=== PATIENT | female | born 1970 | race Caucasian/White ===

== ENCOUNTER 2017-01-28 12:18 | Emergency (ER) | payer OTHER ==
--- NOTE | 2017-01-28 12:55 | UC ---
UC General HPI - HPI Summary HPI Summary: three days of sore thraot, stared with headache and body aches, no energy - History of Current Complaint Stated Complaint: FEVER,SORE THROAT Time Seen by Provider: 01/28/17 12:46 Hx Obtained From: Patient Onset/Duration: Sudden Onset, Lasting Days Timing: Constant Onset Severity: Moderate Current Severity: Moderate Associated Signs & Symptoms: Positive: Fever, Headache - Allergy/Home Medications Allergies/Adverse Reactions: Allergies Allergy/AdvReac Type Severity Reaction Status Date / Time Codeine Allergy Unknown Verified 01/28/17 13:06 Reaction Details Meperidine [From Demerol HCl] Allergy Unknown Verified 01/28/17 13:06 Reaction Details Morphine Allergy Unknown Verified 01/28/17 13:06 Reaction Details PMH/Surg Hx/FS Hx/Imm Hx Previously Healthy: Yes - Surgical History Surgical History: Yes Surgery Procedure, Year, and Place: D&c, gallbladder , nose surgery d/t fx. - Family History Known Family History: Negative: Cardiac Disease, Hypertension - Social History Alcohol Use: None Substance Use Type: None Smoking Status (MU): Heavy Every Day Tobacco Smoker Type: Cigarettes Amount Used/How Often: 1 pack per day Length of Time of Smoking/Using Tobacco: 25 yrs Have You Smoked in the Last Year: Yes Household Exposure Type: Cigarettes Review of Systems Constitutional: Fever, Fatigue Skin: Negative Eyes: Negative ENT: Sore Throat Respiratory: Negative Cardiovascular: Negative Gastrointestinal: Negative Genitourinary: Negative Motor: Negative Neurovascular: Negative Musculoskeletal: Myalgia Neurological: Headache Psychological: Negative All Other Systems Reviewed And Are Negative: Yes Physical Exam Triage Information Reviewed: Yes Appearance: Well-Nourished, Ill-Appearing, Pain Distress Vital Signs Reviewed: Yes Eye Exam: Normal Eyes: Positive: Conjunctiva Clear ENT: Positive: Pharyngeal erythema, Nasal congestion, TMs normal, Muffled/ hoarse voice Dental Exam: Normal Neck exam: Normal Neck: Positive: Supple, Nontender, No Lymphadenopathy Respiratory Exam: Normal Respiratory: Positive: Chest non-tender, No respiratory distress, No accessory muscle use, Wheezing, Inspiration Cardiovascular Exam: Normal Cardiovascular: Positive: RRR, No Murmur, Pulses Normal Abdominal Exam: Normal Abdomen Description: Positive: Nontender, No Organomegaly, Soft Bowel Sounds: Positive: Present Musculoskeletal Exam: Normal Musculoskeletal: Positive: Strength Intact, ROM Intact, No Edema Neurological Exam: Normal Neurological: Positive: Alert, Muscle Tone Normal Psychological Exam: Normal Skin Exam: Normal Course/Dx - Course Course Of Treatment: hx obtained, exam performed, rapid flu obtained and was positive, educated on symptom managment - Differential Dx - Multi-Symptom Provider Diagnoses: influenza A Discharge - Discharge Plan Condition: Stable Disposition: HOME Patient Education Materials: Influenza (ED) Additional Instructions: Increase your fluid intake and get plenty of rest. increase your fluid intake and follow up as needed.
[2017-01-28 13:06] VITALS: BP 110/62
== END 2017-01-28 13:35 | disposition home or self-care (01) ==
LOC: UCCORT 12:18
DX: J10.1 Influenza due to other identified influenza virus with other respiratory manifestations (principal); Z90.49 Acquired absence of other specified parts of digestive tract; Z88.5 Allergy status to narcotic agent; F17.210 Nicotine dependence, cigarettes, uncomplicated
CPT/HCPCS: 87502; 99211; G0463

== ENCOUNTER 2017-12-09 09:25 | Emergency (ER) | payer OTHER ==
[2017-12-09 11:31] VITALS: BP 113/59
--- NOTE | 2017-12-09 12:13 | UC ---
Throat Pain/Nasal Ralph HPI - HPI Summary HPI Summary: Pt presents with c/o Of 1. " I think I have a sinus infection". 2.c/o of left medial upper back pain with left arm weakness. Denies MEEIR or unilateral weakness. Denies injury or trauma. - History of Current Complaint Chief Complaint: UCRespiratory Stated Complaint: MEIER Time Seen by Provider: 12/09/17 11:47 Hx Obtained From: Patient Hx Last Menstrual Period: 12/05/17 ?: No Onset/Duration: Gradual Onset, Still Present Severity: Moderate Associated Signs & Symptoms: Positive: Sinus Discomfort - Allergies/Home Medications Allergies/Adverse Reactions: Allergies Allergy/AdvReac Type Severity Reaction Status Date / Time Codeine Allergy Unknown Verified 12/09/17 11:23 Reaction Details Meperidine [From Demerol HCl] Allergy Unknown Verified 12/09/17 11:23 Reaction Details Morphine Allergy Unknown Verified 12/09/17 11:23 Reaction Details Home Medications: Home Medications Ibuprofen [Ibuprofen 200 MG] 800 mg PO ONCE PRN 12/09/17 [History Confirmed 11/14] PMH/Surg Hx/FS Hx/Imm Hx Previously Healthy: No - pt states she is "very sick all the time" Recently diagnosed with Lupus. Psychological History: Anxiety - Surgical History Surgical History: Yes Surgery Procedure, Year, and Place: D&c, gallbladder , nose surgery d/t fx. - Family History Known Family History: Negative: Cardiac Disease, Hypertension - Social History Occupation: Unemployed Lives: With Family Alcohol Use: None Substance Use Type: None Smoking Status (MU): Heavy Every Day Tobacco Smoker Type: Cigarettes Amount Used/How Often: 1 1/2 pack per day Length of Time of Smoking/Using Tobacco: 25 yrs Have You Smoked in the Last Year: Yes Household Exposure Type: Cigarettes Review of Systems Constitutional: Fatigue Skin: Negative Eyes: Negative ENT: Sinus Congestion, Sinus Pain/Tenderness Respiratory: Negative Cardiovascular: Negative Gastrointestinal: Negative Genitourinary: Negative Motor: Decreased ROM - left arm/shoulder Neurovascular: Negative Musculoskeletal: Decreased ROM - left shoulder, Myalgia - left medial upper back Neurological: Weakness - left shoulder Psychological: Anxious Is Patient Immunocompromised?: No All Other Systems Reviewed And Are Negative: Yes Physical Exam Triage Information Reviewed: Yes Appearance: Ill-Appearing, Other: - anxious, tearful, states she was addicted to opioids at one time, Vital Signs: Initial Vital Signs Temp 99.8 F 12/09/17 11:24 Pulse 83 12/09/17 11:24 Resp 20 12/09/17 11:24 BP 113/59 12/09/17 11:24 Pulse Ox 99 12/09/17 11:24 Vital Signs Reviewed: Yes Eye Exam: Normal ENT Exam: Normal Neck exam: Normal Neck: Positive: Other: - no unilateral drooping or weakness in face Respiratory Exam: Normal Cardiovascular Exam: Normal Musculoskeletal: Positive: Strength Limited @ - right hand director vaccine > than left,, ROM Limited @ - left shoulder, Other: - trigger point tenderness left medial mid upper back. Neurological Exam: Normal Neurological: Positive: Alert Psychological Exam: Other Psychological: Positive: Other: - anxious Skin Exam: Normal Throat Pain/Nasal Course/Dx - Differential Dx/Diagnosis Differential Diagnosis/HQI/PQRI: Sinusitis, Other Provider Diagnoses: sinusitis. myalgia, trigger point tenderness Discharge - Discharge Plan Condition: Stable Disposition: HOME Prescriptions: Cyclobenzaprine TAB* [Flexeril 10 MG TAB*] 10 mg PO Q8H PRN #30 tab PRN Reason: Pain Ketorolac TAB * [Toradol TAB *] 10 mg PO Q6H PRN #15 tab PRN Reason: Pain predniSONE TAB* [Deltasone TAB*] 20 mg PO DAILY #4 tab Patient Education Materials: Sinusitis (ED), Trigger Point Pain (ED), General Headache (ED) Referrals: [facility] [Outside] Jason Sesay MD [Medical Doctor] - If Needed No Primary Care Phys,NOPCP [Primary Care Provider] - Additional Instructions: Please follow up with your PCP or return to clinic as needed. Also, please follow up with Dr. Sesay as scheduled or earlier if needed and take your medications as prescribed LUZ MARIA.
== END 2017-12-09 12:26 | disposition home or self-care (01) ==
LOC: UCCORT 09:25
DX: J32.9 Chronic sinusitis, unspecified (principal); M79.1 Myalgia; F41.9 Anxiety disorder, unspecified; M32.9 Systemic lupus erythematosus, unspecified; F17.210 Nicotine dependence, cigarettes, uncomplicated; Z88.5 Allergy status to narcotic agent
CPT/HCPCS: 99212; G0463

== ENCOUNTER 2018-05-16 16:52 | Emergency (ER) | payer OTHER ==
[2018-05-16 17:30] VITALS: BP 112/69
--- NOTE | 2018-05-16 18:03 | UC ---
Throat Pain/Nasal Ralph HPI - HPI Summary HPI Summary: 47 yo female with fever and sore throat x days she lives in chronic pain neck pain x yrs MRI about 6 mos ago -multiple herniated discs low back pain x yrs DDD abd pain x >[address] 6 mos ago- negative about 4 mos ago dxed with LUPUS recently started plaquinal - History of Current Complaint Chief Complaint: UCGeneralIllness Stated Complaint: FEVER,EAR PAIN, RESPIRATORY Time Seen by Provider: 05/16/18 17:28 Hx Obtained From: Patient Hx Last Menstrual Period: 12/05/17 Onset/Duration: Gradual Onset, Lasting Days Severity: Moderate Pain Intensity: 6 Pain Scale Used: 0-10 Numeric Cough: None Associated Signs & Symptoms: Positive: Fever - Allergies/Home Medications Allergies/Adverse Reactions: Allergies Allergy/AdvReac Type Severity Reaction Status Date / Time codeine Allergy Unknown Verified 05/16/18 17:35 Reaction Details meperidine [From Demerol] Allergy Unknown Verified 05/16/18 17:35 Reaction Details morphine Allergy Unknown Verified 05/16/18 17:35 Reaction Details Home Medications: Home Medications Hydroxychloroquine TAB* [Plaquenil TAB*] 200 mg PO DAILY 05/16/18 [History Confirmed 05/16/18] PMH/Surg Hx/FS Hx/Imm Hx - Surgical History Surgical History: Yes Surgery Procedure, Year, and Place: D&c, gallbladder , nose surgery d/t fx. - Family History Known Family History: Positive: Other - LUPUS 3 relatives Negative: Cardiac Disease, Hypertension - Social History Alcohol Use: None Substance Use Type: None Smoking Status (MU): Heavy Every Day Tobacco Smoker Type: Cigarettes Amount Used/How Often: 1 1/2 pack per day Length of Time of Smoking/Using Tobacco: 25 yrs Have You Smoked in the Last Year: Yes Household Exposure Type: Cigarettes Review of Systems Constitutional: Fever, Chills Skin: Negative Eyes: Negative ENT: Sore Throat Respiratory: Negative Cardiovascular: Negative Gastrointestinal: Abdominal Pain - chronic Genitourinary: Negative Motor: Negative Neurovascular: Negative Musculoskeletal: Myalgia Neurological: Negative Psychological: Negative All Other Systems Reviewed And Are Negative: Yes Physical Exam Triage Information Reviewed: Yes Appearance: Well-Appearing, No Pain Distress, Well-Nourished Vital Signs: Initial Vital Signs Temp 100.4 F 05/16/18 17:24 Pulse 97 05/16/18 17:24 Resp 16 05/16/18 17:24 BP 112/69 05/16/18 17:24 Pulse Ox 99 05/16/18 17:24 Vital Signs Reviewed: Yes Eyes: Positive: Conjunctiva Clear ENT: Positive: Pharyngeal erythema. Negative: Trismus, Muffled voice, Hoarse voice Neck: Positive: Enlarged Nodes @ - ant cervicacl Respiratory: Positive: Lungs clear, Normal breath sounds, No respiratory distress, No accessory muscle use Cardiovascular: Positive: RRR, No Murmur Abdomen Description: Negative: Nontender - diffuse mild tenderness, Distended, Guarding Bowel Sounds: Positive: Present Musculoskeletal: Positive: ROM Intact, No Edema Neurological: Positive: Alert Psychological Exam: Normal Skin Exam: Normal Diagnostics - Laboratory Diagnostic Studies Completed/Ordered: strep (-) Throat Pain/Nasal Course/Dx - Differential Dx/Diagnosis Provider Diagnoses: acute pharyngitis. chronic neck/back and abdominal pain Discharge - Sign-Out/Discharge Documenting (check all that apply): Discharge/Admit/Transfer - Discharge Plan Condition: Stable Disposition: HOME Prescriptions: Amoxicillin PO (*) [Amoxicillin 875 MG (*)] 875 mg PO BID #20 tab Patient Education Materials: Pharyngitis (ED) Referrals: JOSE Chavez [Primary Care Provider] - 2 Days - Billing Disposition and Condition Condition: STABLE Disposition: Home
== END 2018-05-16 18:17 | disposition home or self-care (01) ==
LOC: UCCORT 16:52
DX: Z88.5 Allergy status to narcotic agent (principal); J02.9 Acute pharyngitis, unspecified; G89.29 Other chronic pain; M54.2 Cervicalgia; M54.9 Dorsalgia, unspecified; R10.9 Unspecified abdominal pain
CPT/HCPCS: 81003; 84702; 87651; 99212; G0463

== ENCOUNTER 2018-12-08 09:02 | Emergency (ER) | payer OTHER ==
[2018-12-08] MEDS ORDERED: Acetaminophen TAB* 325 MG PO ONE (10:18)
[2018-12-08 10:22] VITALS: BP 119/41
--- NOTE | 2018-12-08 11:36 | ED ---
Back Pain - HPI Summary HPI Summary: 48 yr old female with the complaint of left flank pain. Onset of pain 3 days ago. She has had chills, Nausea, vomiting. She had other people in the family with NVD. She has had increased frequency of urination, but also hesitancy of urination. She denies dizziness. No cough, chest pain or sob. She denies falls or injuries. - History of Current Complaint Chief Complaint: UCBackPain Stated Complaint: LOWER BACK PAIN Time Seen by Provider: 12/08/18 10:20 Hx Last Menstrual Period: 3 weeks Pain Intensity: 7 - Allergies/Home Medications Allergies/Adverse Reactions: Allergies Allergy/AdvReac Type Severity Reaction Status Date / Time codeine Allergy Unknown Verified 12/08/18 10:11 Reaction Details meperidine [From Demerol] Allergy Unknown Verified 12/08/18 10:11 Reaction Details morphine Allergy Unknown Verified 12/08/18 10:11 Reaction Details PMH/Surg Hx/FS Hx/Imm Hx Cardiovascular History: Reports: Hx Hypertension - after menigitis age 33 yrs - Surgical History Surgery Procedure, Year, and Place: D&c, gallbladder , nose surgery d/t fx. Infectious Disease History: No Infectious Disease History: Denies: Traveled Outside the [place] in Last 30 Days - Family History Known Family History: Positive: Other - LUPUS 3 relatives Negative: Cardiac Disease, Hypertension - Social History Alcohol Use: Occasionally Substance Use Type: Reports: None Smoking Status (MU): Heavy Every Day Tobacco Smoker Type: Cigarettes Amount Used/How Often: 1 1/2 pack per day Length of Time of Smoking/Using Tobacco: 25 yrs Have You Smoked in the Last Year: Yes Review of Systems Constitutional: Negative Positive: frequency, other - hesitancy All Other Systems Reviewed And Are Negative: Yes Physical Exam Triage Information Reviewed: Yes Vital Signs On Initial Exam: Initial Vitals Temp Pulse Resp BP Pulse Ox 99.8 F 75 28 119/41 100 12/08/18 10:13 12/08/18 10:13 12/08/18 10:13 12/08/18 10:13 12/08/18 10:13 Vital Signs Reviewed: Yes Appearance: Positive: Well-Appearing, No Pain Distress Skin: Positive: Warm, Skin Color Reflects Adequate Perfusion Head/Face: Positive: Normal Head/Face Inspection Eyes: Positive: EOMI ENT: Positive: Pharynx normal, TMs normal Neck: Positive: Nontender Respiratory/Lung Sounds: Positive: Clear to Auscultation, Breath Sounds Present Cardiovascular: Positive: RRR. Negative: Murmur Abdomen Description: Positive: CVA Tenderness (R), CVA Tenderness (L) Musculoskeletal: Positive: Strength/ROM Intact Neurological: Positive: Sensory/Motor Intact, Alert, Oriented to Person Place, Time, CN Intact II-III Psychiatric: Positive: Normal - Colwell Coma Scale Best Eye Response: 4 - Spontaneous Best Motor Response: 6 - Obeys Commands Best Verbal Response: 5 - Oriented Coma Scale Total: 15 Diagnostics - Vital Signs Vital Signs Temp Pulse Resp BP Pulse Ox 12/08/18 10:13 99.8 F 75 28 119/41 100 - Laboratory Lab Results: Lab Results 12/08/18 12/08/18 Range/Units 10:26 10:28 POC Urine Color Yellow POC Urine Clarity Clear POC Urine pH 5.5 (5-9) POC Ur Specif [place] >= 1.030 (1.010-1.030) POC Urine Protein 1+ A (Negative) POC Ur Glucose (UA) Negative (Negative) POC Urine Ketones Trace A (Negative) POC Urine Blood 1+ A (Negative) POC Urine Nitrite Negative (Negative) POC Urine Bilirubin 1+ A (Negative) POC Urine Urobilinogen 0.2 (Negative) POC U Leukocyte Esteras Negative (Negative) POC Ur Test Negative (Negative) Lab Statement: Any lab studies that have been ordered have been reviewed, and results considered in the medical decision making process. Back Pain Course/Dx - Course Course Of Treatment: 48 yr old with back pain. CT neg for acute findings or renal stones. She has been advised to go to the ER for lab eval and further work up. She will go to the ER from here. - Diagnoses Provider Diagnoses: Back pain Discharge - Sign-Out/Discharge Documenting (check all that apply): Patient Departure All imaging exams completed and their final reports reviewed: Yes - Discharge Plan Condition: Good Disposition: HOME Patient Education Materials: Back Pain (ED) Referrals: Baljit Kumar MD [Primary Care Provider] - 2 Days - Billing Disposition and Condition Condition: GOOD Disposition: Home
== END 2018-12-08 11:48 | disposition home health service (06) ==
LOC: UCCORT 09:02
DX: M54.9 Dorsalgia, unspecified (principal); Z88.5 Allergy status to narcotic agent; I10 Essential (primary) hypertension; F17.210 Nicotine dependence, cigarettes, uncomplicated
CPT/HCPCS: 74176; 81003; 84702; 99212; A9270-GY; G0463

== ENCOUNTER 2019-01-22 16:18 | Emergency (ER) | payer OTHER ==
[2019-01-22 17:11] VITALS: BP 116/62
--- NOTE | 2019-01-22 17:26 | UC ---
Upper Extremity HPI - HPI Summary HPI Summary: Pt's pet 200lb Neo Oliveira yanked on patient's arm about 5 times while she was holding his collar. Happened 5 days ago and still has right shoulder pain. - History of Current Complaint Chief Complaint: UCUpperExtremity Stated Complaint: RT SHOULDER COMPLAINT Time Seen by Provider: 01/22/19 17:14 Hx Obtained From: Patient Hx Last Menstrual Period: 01/20/19 ?: No Onset/Duration: Sudden Onset, Worse Since - Worse since it happened 5 days ago. , Other Severity Initially: Moderate Severity Currently: Moderate Pain Intensity: 6 Character: Sharp, Aching, Throbbing Aggravating Factor(s): Movement, Lifting, Abduction Alleviating Factor(s): Nothing, Other: - Pain better when not moving. Associated Signs And Symptoms: Positive: Numbness/Tingling - Pt states because she has neck and shoulder problems as well as fibrmyalgia, she has constant numbness and tingling to right arm normally, not worse since the injury. - Risk Factors Non-Orthopedic Risk Factor: Negative DVT Risk Factors: Negative Septic Arthritis Risk Factor: Negative - Allergies/Home Medications Allergies/Adverse Reactions: Allergies Allergy/AdvReac Type Severity Reaction Status Date / Time codeine Allergy Severe Swelling Verified 01/22/19 17:06 Of Face,Lips,& Throat meperidine [From Demerol] Allergy Unknown Verified 01/22/19 17:06 Reaction Details morphine Allergy Unknown Verified 01/22/19 17:06 Reaction Details Home Medications: Home Medications NK [No Home Medications Reported] 01/22/19 [History Confirmed 01/22/19] PMH/Surg Hx/FS Hx/Imm Hx Previously Healthy: No - History of fibromyalgia, always has numbness and tingling to right arm. Other Neurological History: Fibromyalgia with chronic numbness and tingling to right arm. - Surgical History Surgical History: Yes Surgery Procedure, Year, and Place: D&c, gallbladder , nose surgery d/t fx. - Family History Known Family History: Positive: Other - LUPUS 3 relatives Negative: Cardiac Disease, Hypertension - Social History Lives: With Family Alcohol Use: Occasionally Substance Use Type: None Smoking Status (MU): Heavy Every Day Tobacco Smoker Type: Cigarettes Amount Used/How Often: 1 1/2 pack per day Length of Time of Smoking/Using Tobacco: 25 yrs Have You Smoked in the Last Year: Yes Household Exposure Type: Cigarettes Review of Systems All Other Systems Reviewed And Are Negative: Yes Skin: Negative: Rash, Bruising Respiratory: Negative: Shortness Of Breath Cardiovascular: Negative: Palpitations, Chest Pain Motor: Positive: Decreased ROM Neurovascular: Positive: Decreased Sensation - Pt always has nymbness and tingling to right arm Musculoskeletal: Positive: Decreased ROM Neurological: Positive: Paresthesia, Numbness - Chronic due to fibromyalgia Is Patient Immunocompromised?: No Physical Exam Triage Information Reviewed: Yes Appearance: Well-Appearing, No Pain Distress, Well-Nourished Vital Signs: Initial Vital Signs Temp 99 F 01/22/19 17:06 Pulse 80 01/22/19 17:06 Resp 14 01/22/19 17:06 BP 116/62 01/22/19 17:06 Pulse Ox 99 01/22/19 17:06 Vital Signs Reviewed: Yes Neck exam: Normal Neck: Positive: Supple Respiratory Exam: Normal Cardiovascular Exam: Normal Musculoskeletal: Positive: Strength Intact - No erythema, deformity, bruising or swelling present, ROM Limited @ - Able to abduct right arm to approx 90 degrees then has pain., Other: - Pain on palpation right anterior shoulder. Neurological: Positive: Alert, Muscle Tone Normal, Other: - Decreased sensation right arm (chronic for pt) Psychological Exam: Normal Skin Exam: Normal Upper Extremity Course/Dx - Course Course Of Treatment: Patient has been fairly comfortable here. She refuses any pain medication. X-ray of the right shoulder was negative. She was given an arm sling for comfort. She is follow-up with the orthopedist in 3 or 4 days if no improvement. She is to avoid movements that cause pain. She may take whatever pain medication she has at home. She may also apply heat to the sore area. - Differential Dx/Diagnosis Differential Diagnosis/HQI/PQRI: Strain Provider Diagnosis: Right shoulder strain Discharge - Sign-Out/Discharge Documenting (check all that apply): Patient Departure All imaging exams completed and their final reports reviewed: No - Discharge Plan Condition: Fair Disposition: HOME Patient Education Materials: Muscle Strain (DC) Referrals: Baljit Kumar MD [Primary Care Provider] - Additional Instructions: Apply heat to the sore area. Take your normla medication for pain. Definite follow up with orthopedist if continued pain. Avoid movements that cause pain. - Billing Disposition and Condition Condition: FAIR Disposition: Home - Attestation Statements Provider Attestation: I was available for consult. This patient was seen by the [facility]. The patient was not presented to, seen by, or examined by me. -Kane
--- NOTE | 2019-01-23 07:16 | UC ---
- Progress Note Progress Note: xray report right shoulder : FINDINGS: The bones are in normal alignment. No fracture is seen. Joint spaces appear maintained. IMPRESSION: NO EVIDENCE OF FRACTURE. Course/Dx - Diagnoses Provider Diagnoses: Right shoulder strain Discharge - Sign-Out/Discharge Documenting (check all that apply): Patient Departure All imaging exams completed and their final reports reviewed: Yes - Discharge Plan Condition: Fair Disposition: HOME Patient Education Materials: Muscle Strain (DC) Referrals: Baljit Kumar MD [Primary Care Provider] - Additional Instructions: Apply heat to the sore area. Take your normla medication for pain. Definite follow up with orthopedist if continued pain. Avoid movements that cause pain. - Billing Disposition and Condition Condition: FAIR Disposition: Home
== END 2019-01-22 18:43 | disposition home or self-care (01) ==
LOC: UCCORT 16:18
DX: S46.911A Strain of unspecified muscle, fascia and tendon at shoulder and upper arm level, right arm, initial encounter (principal); M79.7 Fibromyalgia; Z88.5 Allergy status to narcotic agent; X50.0XXA Overexertion from strenuous movement or load, initial encounter; Y93.89 Activity, other specified; Y92.9 Unspecified place or not applicable
CPT/HCPCS: 99212; G0463

== ENCOUNTER 2019-03-04 11:27 | Emergency (ER) | payer OTHER ==
--- OUTSIDE RECORDS SUMMARY | 2019-03-04 13:17 | XMS REPORT | Continuity of Care Document ---
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 Monique Chapman MD Primary Care Physician Unavailable Payers Date Identification Numbers Payment Provider Subscriber Effective: 2019 Policy Number: [id number] Medicaid [place] Self PayID: [id number] [address] [place] [id number] Advance Directives Description No Information Available Problems Date Description Provider Status Onset: 01/07/2015 Gastroesophageal reflux disease Sissy Mercado RPAC Active Onset: 01/07/2015 Gastroesophageal reflux disease Sissy Mercado RPAC Active Onset: 01/07/2015 Kidney stone Sissy Mercado RPAC Active Onset: 01/07/2015 Deviated nasal septum Sissy Mercado RPAC Active Onset: 01/07/2015 Cigarette smoker Sissy Mercado RPAC Active Onset: 08/04/2013 Multiple joint pain Linda Geiger MD Active Onset: 06/30/2017 Open wound of forearm Trupti Abbott PA Active Onset: 06/30/2017 Skin sensation disturbance Trupti Abbott PA Active Family History Date Family Member(s) Observation Comments General Non Contributory Social History Type Date Description Comments Sex Unknown Marital Status Lives With Boyfriend Home Environment Lives With boyfriend Occupation Disabled Work Status Disabled Hand Dominance Right-handed Tobacco Use Start: Unknown currently smokes 1/2 Pack Daily Smoking Status Reviewed: 03/08/19 currently smokes 1/2 Pack Daily Smokeless Tobacco Never Used Smokeless Tobacco ETOH Use Rarely consumes alcohol Tobacco Use Start: Unknown Heavy tobacco smoker (more than 10 cigarettes/day) Recreational Drug Use Denies Drug Use Allergies, Adverse Reactions, Alerts Date Description Reaction Status Severity Comments 01/31/2013 Levaquin Active 10/31/2012 Morphine Active 10/15/2014 Meperidine Active 10/31/2012 Demerol Active 10/31/2012 Codeine Active Medications Medication Date Status Form Strength Qnty SIG Indications Ordering Provider Ibuprofen 02/01/20 Active Tablets 800mg 15tab one Palacio, 19 s tablet by alla Da Silva MD every 8 hours as needed pain Flonase 12/13/19 Active Suspension 50mcg/Act 16uni one spray Fely, 14 ts each nare Linda daily , Cyclobenzaprine 10/16/20 Active Tablets 10mg 90tab 1 by AMOR Geiger 13 s mouth Lindaricardo estrella MD times a day as needed Depo-Provera 04/04/20 Hx Suspension 150mg/ml 1ml administe N92.1 Joseph, 18 - r 1 JOLIE Ruggiero 02/01/20 millilite 19 rs intramusc ularly every 12 weeks for control Bentyl 05/18/20 Hx Capsules 10mg 90cap cap by Guilherme 17 - s alla Villegas MD 03/28/20 three 18 times a day as needed for crampy abd pain Amoxicillin 05/16/20 Hx Capsules 500mg 30cap on by 461.8 Tru, 15 - s mouth Jenniferl 05/28/20 three eigh, 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 *in place of augmentin * Amoxicillin/Clav 05/12/20 Hx Tablets 500-125mg 20tab one by 461.8 kumar Ottanate 15 - s mouth Jenniferl Potassium 05/16/20 twice a eigh, 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 15 day x 10 days Amoxicillin/Clav 02/11/20 Hx Tablets 875-125mg 14tab 1 by david Geiger 15 - s mouth Linda Potassium 05/12/20 twice a , 15 day Mucinex 02/05/20 Hx Tablets ER 600mg 60tab 1 tab by Fely, 15 - 12HR s mouth Linda 05/12/20 twice a , 15 day Doxycycline 02/05/20 Hx Capsules 100mg 20cap 1 tab by Fely Monohydrate 15 - s mouth Linda 05/12/20 twice a , 15 day Sucralfate 01/07/20 Hx Suspension 1GM/10ML 420un 2 Love, 15 - its teaspoons Maria Elena Unknown poaubrey MD and swallow, qid Omeprazole 01/07/[address] 20mg 90tab 1 by Sally 15 - s mouth Maria Elena 03/28/20 every day , 18 Fluticasone Hx Suspension 50mcg/Act Unknown Propionate 03/28/20 18 Gabapentin Hx Capsules 400mg Unknown 03/28/20 18 Hydrocodone-Acet Hx Tablets 7.5-325mg Unknown aminophen 03/28/20 18 Immunizations CPT Code Status Date Vaccine Lot # [id number] Given 10/09/2012 flu vaccination Vital Signs Date Vital Result Comment 02/05/2019 9:23am BP Systolic 110 mmHg BP Diastolic 76 mmHg Body Temperature 98.3 F Heart Rate 80 /min Height 60 inches 5'0" Weight 131.00 lb BMI (Body Mass Index) 25.6 kg/m2 BSA (Body Surface Area) 1.56 m2 [place] body weight in kilograms 45 kg O2 % BldC Oximetry 96 % room air Left ear audiology results 6 01/31/2019 8:55am BP Systolic 110 mmHg BP Diastolic 76 mmHg Body Temperature 97.8 F Heart Rate 76 /min Height 62 inches 5'2" Weight 134.00 lb BMI (Body Mass Index) 24.5 kg/m2 BSA (Body Surface Area) 1.61 m2 [place] body weight in kilograms 50 kg O2 % BldC Oximetry 99 % Pain Level 7 04/04/2018 11:14am BP Systolic 126 mmHg BP Diastolic 80 mmHg Height 61.5 inches 5'1.50" [place] body weight in kilograms 49 kg 03/28/2018 2:10pm BP Systolic 108 mmHg BP Diastolic 61 mmHg Height 61.5 inches 5'1.50" Weight 134.00 lb BMI (Body Mass Index) 24.9 kg/m2 BSA (Body Surface Area) 1.60 m2 [place] body weight in kilograms 49 kg 06/30/2017 11:10am BP Systolic Sitting Left Arm 102 mmHg BP Diastolic Sitting Left Arm 60 mmHg Height 61.5 inches 5'1.50" Weight 129.00 lb BMI (Body Mass Index) 24.0 kg/m2 BSA (Body Surface Area) 1.58 m2 [place] body weight in kilograms 49 kg 05/18/2017 2:01pm BP Systolic Sitting Left Arm 120 mmHg BP Diastolic Sitting Left Arm 84 mmHg Heart Rate 80 /min Respiratory Rate 16 /min Height 60 inches 5'0" Weight 132.00 lb BMI (Body Mass Index) 25.8 kg/m2 BSA (Body Surface Area) 1.56 m2 [place] body weight in kilograms 45 kg 07/01/2015 11:25am BP Systolic 100 mmHg BP Diastolic 64 mmHg Height 60 inches 5'0" Weight 138.00 lb BMI (Body Mass Index) 26.9 kg/m2 BSA (Body Surface Area) 1.59 m2 Last Menstrual Period [id number] 05/12/2015 11:18am BP Systolic Sitting Left Arm 118 mmHg BP Diastolic Sitting Left Arm 72 mmHg Body Temperature 99.6 F Height 60 inches 5'0" Weight 140.00 lb BMI (Body Mass Index) 27.3 kg/m2 BSA (Body Surface Area) 1.60 m2 Last Menstrual Period [id number] 02/04/2015 11:23am BP Systolic 122 mmHg BP Diastolic 86 mmHg Body Temperature 100.1 F Height 60 inches 5'0" Weight 139.00 lb 01/07/2015 11:12am BP Systolic 120 mmHg BP Diastolic 90 mmHg Body Temperature 99.3 F Heart Rate 80 /min Height 60 inches 5'0" Weight 138.00 lb 09/19/2014 1:34pm BP Systolic 118 mmHg BP Diastolic 64 mmHg Height 60 inches 5'0" Weight 136.00 lb 06/05/2014 4:35pm BP Systolic 106 mmHg BP Diastolic 74 mmHg Height 60 inches 5'0" Weight 136.00 lb 12/13/2013 11:25am BP Systolic 100 mmHg BP Diastolic 62 mmHg Body Temperature 100.0 F Heart Rate 80 /min Height 60 inches 5'0" Weight 137.00 lb 10/16/2013 10:42am BP Systolic 108 mmHg BP Diastolic 74 mmHg Body Temperature 99.2 F Heart Rate 72 /min Respiratory Rate 18 /min Height 60 inches 5'0" Weight 134.00 lb 08/02/2013 8:04pm BP Systolic 110 mmHg BP Diastolic 74 mmHg Height 60 inches 5'0" Weight 134.00 lb 03/06/2013 10:44am BP Systolic 102 mmHg BP Diastolic 68 mmHg Height 60 inches 5'0" Weight 132.00 lb 01/30/2013 10:34am BP Systolic 138 mmHg BP Diastolic 78 mmHg Body Temperature 99.4 F Height 60 inches 5'0" Weight 136.00 lb Results Test Date Facility Test Result H/L Range Note Laboratory test 03/28/2018 [facility] Thyroid Stim <pending> finding [address] [place] [address] [phone] LDH <pending> FSH <pending> Laboratory test 03/28/2018 [facility] Hepatitis B <pending> finding [address] [place] [place] [address] [phone] Hepatitis C Antibody <pending> Treponema Antibody [place] <pending> Urine Culture 03/28/2018 [facility] Urine Culture NO GROWTH: 1, [address] FINAL <[place] [address] NOTE> [phone] CBS 03/28/2018 [facility] White Blood 7.7 K/uL N 3.1-10 W/Automated [address] Count .7 [place] [address] [phone] Red Blood Count 4.39 M/uL N 3.90-5.40 Hemoglobin 14.8 gm/dL N 11.6-15.8 Hematocrit 43.0 % N 36.0-46.1 Mean Cell Volume 97.9 fl N 80.9-99.0 Mean Corpuscular HGB 33.7 pg High 25.9-32.7 Mean Corpuscular HGB Conc 34.4 g/dL High 30.8-34.3 Platelet Count 255 K/uL N 155-360 Red Cell Distri Width SD 48.7 fl High 3-47 Red Cell Distri Width %CV 13.9 % N 11.7-14.4 Mean Platelet Volume 11.3 fL N 8.9-12.4 Neut% 70.7 % N 40.4-72.8 Lymph % 23.1 % N 20.0-42.0 [place] % 4.9 % N 4.3-13.2 Eo% 1.0 % N 0.0-6.6 Bas% 0.3 % N 0.0-1.1 Neut# 5.43 K/uL N 1.8-7.0 Lymph # 1.78 K/uL N 1.0-4.0 [place] # 0.38 K/uL N 0.3-0.9 Eos # 0.08 K/uL N 0.0-0.5 Baso # 0.02 K/uL N 0.0-0.1 Laboratory test finding 03/28/2018 [facility] LDH 213 U/L N 84-[address] [place] [address] [phone] Thyroid Stim Hormone 1.00 uIU/mL N 0.30-4.20 FSH 20.0 mIU/mL 3 Chlamydia/GC Yelitza 03/28/2018 [facility] Chlamydia Negative Negative [address] Trachomatis, [place] [address] [phone] Neisseria Gonorrhoeae, PCR Negative Negative Please note: (SEE NOTE) 4 HIV Screen 4TH 03/28/2018 [facility] HIV Screen 4th Non Non [address] Reflex [address] Generation wR[place] [address] [phone] Laboratory 03/28/2018 [facility] Cytopathology <pending> test finding [address] Cervix/[place] [address] [phone] Genital 03/28/2018 [facility] Gram Stain GRAM STAIN 6 Culture W/ [address] SUSPI <[place] [address] NOTE> [phone] Gram Stain MANY GRAM VARIAB <SEE NOTE> 7 Gram Stain RARE GR POS. LEILANI <SEE NOTE> 8 Gram Stain RARE GRAM POSITI <SEE NOTE> 9 Genital Culture GENITAL LASHAUN Laboratory test 03/28/2018 [facility] Treponema Negative Negative finding [address] [place] [address] [place] [phone] Hepatitis B Surface Antigen Negative Negative 10 Hepatitis C Antibody < 0.1 s/corat 0.0-0.9 11 HSV I & II Igg 03/28/2018 [facility] HSV II,Igg,Type <0.91 0.00-0.90 12 Type Specific [address] Specific index [place], [place] [id number] [phone] HSV Type I Specific Igg 36.20 index High 0.00-0.90 13 HSV Types 1 & 03/28/2018 [facility] HSV IgM I/II 1.79 High 0.00-0.90 14 2, Igm [address] [place] [place] [address] [phone] Laboratory 05/19/2017 [facility] Sedimentation 8 mm/hr N 0-20 15, test finding [address] Rate 16 [place] [address] [phone] Celiac 05/19/2017 [facility] Immunoglobulin A 372 High 87-352 Disease Comp [address] mg/dL [place] [address] [phone] Antigliadin Abs, IgG 3 units 0-19 17 Antigliadin Abs, IgA 11 units 0-19 18 Endomysial IgA Antibody Negative Negative t-Transglutaminase IgA <2 U/mL 0-3 19 t-Transglutaminase IgG <2 U/mL 0-5 20 Laboratory test 05/19/2017 [facility] Calprotectin, < 16 ug/g 0-120 [address] [place] [place] [address] [phone] Fecal Fat, 05/19/2017 [facility] Fats, Neutral Normal . [address] [place] [address] [phone] Fats, Total Normal . 23 TSH Reflex FT4 05/19/2017 [facility] Thyroid Stim 0.80 uIU/mL N 0.30-4.20 And/Or FT3 [address] Hormone [place], [place] [id number] [phone] Reflex add FT3? Y Reflex add FT4? Y C-Reactive 05/19/2017 [facility] C-Reactive < 2.9 <3.0 Protein,Quant [address] Protein,Quant mg/L [place], [place] [id number] [phone] Reflex add FT3? Y Reflex add FT4? Y Comprehensive Metabolic 05/19/2017 [facility] Glucose 79 mg/dL N 74-[address] [place], [place] [id number] [phone] BUN 9 mg/dL N 7-18 Creatinine 0.7 mg/dL N 0.6-1.3 Glom Filtration Rate, Estimate >60 mL/min >60 If >60 mL/min >60 24 BUN/Creat 12.8 ratio Sodium 139 mmol/L N 136-145 Potassium 3.8 mmol/L N 3.5-5.1 Chloride 106 mmol/L N 98-107 Carbon Dioxide 26 mmol/L N 21-32 Anion Gap 7 mEq/L Low 8-16 Calcium 8.9 mg/dL N 8.5-10.1 Total Protein 7.6 g/dL N 6.4-8.2 Albumin 3.8 g/dL N 3.4-5.0 Globulin 3.8 g/dL N 1.9-4.3 Alb/Glob 1.0 ratio Bilirubin,Total 0.4 mg/dL N 0.2-1.0 Sgot/Ast 16 U/L N 15-37 SGPT/Alt 25 U/L N 12-78 Alkaline Phosphatase 78 U/L N 45-117 Reflex add FT3? Y Reflex add FT4? Y Lipase 05/19/2017 [facility] Lipase 178 U/L N 73-[address] [place] [address] [phone] Reflex add FT3? Y Reflex add FT4? Y Amylase 05/19/2017 [facility] Amylase 144 U/L High 25-[address] [place] [address] [phone] Reflex add FT3? Y Reflex add FT4? Y Laboratory test 05/19/2017 [facility] Pancreatic > 500.0 >200 [address] Elastase (Pe-1) ug/[place] [address] [phone] Ova & Parasite 05/19/2017 [facility] Parasite SEE MANUAL [address] Concentrate Exam REPOR <[place] [address] NOTE> [phone] Permanent Trichrome Stain SEE MANUAL REPOR <SEE NOTE> 27 Giardia by Eia NEGATIVE for Chrissy <SEE NOTE> 28 Cryptosporidium Eia NEGATIVE for Cry <SEE NOTE> 29 Stool Culture 05/19/2017 [facility] Stool Culture NO ENTERIC PATHO [address] <SEE NOTE> [place] [address] [phone] . ................ <SEE NOTE> N 31 Note: INCLUDES TESTING <SEE NOTE> N 32 . PLESIOMONAS, CAM <SEE NOTE> N 33 . ................ <SEE NOTE> N 34 . YERSINIA AND VIB <SEE NOTE> N 35 . SHOULD BE REQUES <SEE NOTE> N 36 Shiga Toxin 1 Antigen SHIGA TOXIN 1 NO <SEE NOTE> 37 Shiga Toxin 2 Antigen SHIGA TOXIN 2 NO <SEE NOTE> 38 Laboratory test 10/21/2015 [facility] Laboratory Urine Culture SEE RESULT 39 finding [phone] BELOW Laboratory test 02/03/2015 N2N/CCD Import Alb/Glob 1.2 ratio finding Albumin 3.8 g/dL 3.4-5.0 Alkaline Phosphatase 81 U/L 45-117 Antinuclear Antibodies, Ifa Negative . 40 C-Reactive Protein,Quant 5.5 mg/L <3.0 Calcium 8.7 mg/dL 8.5-10.1 Globulin 3.3 g/dL 1.9-4.3 Rheumatoid Factor Screen < 10.0 Iu/ml 0.0-15.0 Sedimentation Rate 26 mm/hr High 0-20 Total Protein 7.1 g/dL 6.4-8.2 Uric Acid 2.3 mg/dL Low 2.6-6.0 CBC W/Automated Diff 02/03/2015 N2N/CCD Import Bas% 0.5 % 0.0-1.1 Baso # 0.03 K/uL 0.0-0.1 Eo% 1.4 % 0.0-6.6 Eos # 0.09 K/uL 0.0-0.5 Hematocrit 40.0 % 36.0-46.1 Hemoglobin 13.3 gm/dL 11.6-15.8 Lymph # 1.09 K/uL Low 1.8-7.0 Lymph % 16.4 % Low 17.0-46.1 Mean Cell Volume 97.8 fl 80.9-99.0 Mean Corpuscular HGB 32.5 pg 25.9-32.7 Mean Corpuscular HGB Conc 33.3 g/dL 30.8-34.3 Mean Platelet Volume 10.5 fL 8.9-12.4 [place] # 0.56 K/uL 0.3-0.9 [place] % 8.4 % 4.3-13.2 Neut# 4.86 K/uL 1.0-7.0 Neut% 73.3 % High 40.4-72.8 Platelet Count 275 K/uL 155-360 Red Blood Count 4.09 M/uL 3.90-5.40 Red Cell Distri Width %CV 13.9 % 11.7-14.4 Red Cell Distri Width SD 48.8 fl High 3-47 White Blood Count 6.6 K/uL 3.1-10.7 Vitamin B12 And Folate 02/03/2015 N2N/CCD Import Folic Acid 10.8 ng/mL 3.1-17.5 Vitamin B12 412 pg/mL 193-986 41 Laboratory test finding 06/05/2014 N2N/CCD Import Urine Culture See Note 42 Laboratory test finding 06/05/2014 N2N/CCD Import FSH 3.8 mIU/mL 43 HCG Serum, Qualitative Negative Thyroid Stim Hormone 1.11 uIU/mL 0.49-4.67 Basic Metabolic Panel 06/05/2014 N2N/CCD Import Anion Gap 12 mEq/L 8-16 BUN 11 mg/dL 5-23 BUN/Creat 18.3 ratio Calcium 9.1 mg/dL 8.5-10.1 Carbon Dioxide 23 mEq/L 18-29 Chloride 108 mmol/L High 98-107 Creatinine 0.6 mg/dL 0.5-1.4 Glom Filtration Rate, Estimate >60 mL/min >60 Glucose 86 mg/dL 76-115 If >60 mL/min >60 44 Potassium 3.9 mmol/L 3.5-5.1 Sodium 139 mmol/L 136-145 CBC/Manual Differential 06/05/2014 N2N/CCD Import Band% 1 % 0-8 Basophil% 1 % 0-2 Eosinophil% 1 % 0-5 Hematocrit 40.9 % 36.0-46.1 Hemoglobin 14.1 gm/dL 11.6-15.8 Lymph% 31 % 17-56 Mean Cell Volume 96.2 fl 80.9-99.0 Mean Corpuscular HGB 33.2 pg High 25.9-32.7 Mean Corpuscular HGB Conc 34.5 g/dL High 30.8-34.3 Mean Platelet Volume 10.9 fL 8.9-12.4 Monocyte% 5 % 0-10 Neutrophils% 61 % 33-73 Platelet Count 269 K/uL 155-360 Platelet Estimate Normal RBC Morphology Normal Red Blood Count 4.25 M/uL 3.90-5.40 Red Cell Distri Width %CV 13.5 % 11.7-14.4 Total Cells Counted 100 #CELLS White Blood Count 10.1 K/uL 3.1-10.7 Laboratory test 10/16/2013 N2N/CCD Import Throat Beta (See Note) 45 finding Strep Culture Laboratory test 08/17/2013 N2N/CCD Import [place] Negative Negative 46 finding (Anti-Nuclear AB) Screen C Reactive Protein < 0.5 mg/dL Less than 0.5 Creatine Kinase 100 U/L 0-200 Rheumatoid Factor <15 Iu/ml <15 47 TSH (Thyroid Stimulating Horm) 1.19 miu/mL 0.34-5.60 Basic Metabolic Panel 08/17/2013 N2N/CCD Import Anion Gap 7.0 mmol/L 2- 11 BUN/Creatinine Ratio 12.9 8-20 Blood Urea Nitrogen 9 mg/dL 6-24 Calcium 9.3 mg/dL 8.1-9.9 Chloride 104 mmol/L 101-111 Co2 Carbon Dioxide 26.0 mmol/L 22-32 Creatinine 0.70 mg/dL 0.50-1.40 Egfr 118.6 >60 48 Egfr Non- 92.2 >60 Glucose 106 mg/dL High 70-100 Potassium 4.1 mmol/L 3.5-5.0 Sodium 137 mmol/L 133-145 CBC With Manual Diff 08/17/2013 N2N/CCD Import Abs Basophils 0 10^3/uL 0 -0.2 Abs Eosinophils 0.1 10^3/uL 0-0.6 Abs Lymphocytes 1.6 10^3/uL 1.0-4.8 Abs Monocytes 0.4 10^3/uL 0-0.8 Abs Neutrophils 6.7 10^3/uL 1.5-7.7 Abs Nucleated RBC 0 10^3/uL Eosinophils % 1 % 0-6 Hematocrit 39 % 35-47 Hemoglobin 12.9 g/dL 12.0-16.0 Lymphocytes % 14 % Low 25-47 Mean Corpuscular HGB Conc 33 g/dL 31-36 Mean Corpuscular Hemoglobin 32 pg High 27-31 Mean Corpuscular Volume 95 fL 80-97 Mean Platelet Volume 8 um3 7.4-10.4 Monocytes % 3 % 0-13 Neutrophil % 81 % 38-83 Platelet Count 312 10^3/uL 150-450 RBC Morphology Normal Normal Reactive Lymph % 1 % 0-6 Red Blood Count 4.11 10^6/uL 4.0-5.4 Red Cell Distribution Width 15 % 10.5-15 White Blood Count 8.8 10^3/uL 4.8-10.8 Liver Function Panel 08/17/2013 N2N/CCD Import Albumin 3.8 g/dL 3.6-5.4 Albumin/Globulin Ratio 1.5 1-3 Alkaline Phosphatase 68 U/L 30-110 Alt 18 U/L 14-54 Ast 20 U/L 12-42 Direct Bilirubin < 0.1 mg/dL Low 0.1-0.5 Globulin 2.6 g/dL 2-4 Indirect Bilirubin (See Note) mg/dL 0.3-1.0 49 Total Bilirubin 0.4 mg/dL 0.4-1.5 Total Protein 6.4 g/dL 6.2-8.1 Vitamin D, 25 08/17/2013 N2N/CCD Import 25-Hydroxy Vitamin D 28 ng/mL 50 Hydroxy Total 25-Hydroxy Vitamin D2 <4.0 ng/mL 25-Hydroxy Vitamin D3 28 ng/mL Laboratory test finding 02/16/2013 N2N/CCD Import Bas% 0.2 % 0.0-1.1 Baso # 0.03 K/uL 0.0-0.1 Eo% 0.6 % 0.0-6.6 Eos # 0.07 K/uL 0.0-0.5 Free T4 1.08 ng/dL 0.71-1.85 HCG Serum, Qualitative Negative Hematocrit 40.0 % 36.0-46.1 Hemoglobin 14.0 gm/dL 11.6-15.8 Lymph # 1.52 K/uL 0.8-3.4 Lymph % 12.1 % Low 17.0-46.1 Mean Cell Volume 94.1 fl 80.9-99.0 Mean Corpuscular HGB 32.9 pg High 25.9-32.7 Mean Corpuscular HGB Conc 35.0 g/dL High 30.8-34.3 Mean Platelet Volume 9.4 fL 8.9-12.4 [place] # 0.43 K/uL 0.3-0.9 [place] % 3.4 % Low 4.3-13.2 Neut# 10.50 K/uL High 1.0-7.0 Neut% 83.7 % High 40.4-72.8 Platelet Count 383 K/uL High 155-360 Red Blood Count 4.25 M/uL 3.90-5.40 Red Cell Distri Width %CV 14.6 % High 11.7-14.4 Red Cell Distri Width SD 48.2 fl High 3-47 Thyroid Stim Hormone 1.35 uIU/mL 0.49-4.67 White Blood Count 12.6 K/uL High 3.1-10.7 Basic Metabolic Panel 02/16/2013 N2N/CCD Import Anion Gap 12 mEq/L 8-16 BUN 9 mg/dL 5-23 BUN/Creat 12.8 ratio Calcium 9.2 mg/dL 8.5-10.1 Carbon Dioxide 26 mEq/L 18-29 Chloride 108 mmol/L High 98-107 Creatinine 0.7 mg/dL 0.5-1.4 Glom Filtration Rate, Estimate >60 mL/min >60 Glucose 96 mg/dL 76-115 If >60 mL/min >60 51 Potassium 3.5 mmol/L 3.5-5.1 Sodium 142 mmol/L 136-145 Laboratory test finding 01/28/2013 N2N/CCD Import Bas% 0.4 % 0.0-1.1 Baso # 0.04 K/uL 0.0-0.1 Eo% 0.6 % 0.0-6.6 Eos # 0.06 K/uL 0.0-0.5 Hematocrit 40.6 % 36.0-46.1 Hemoglobin 13.8 gm/dL 11.6-15.8 Lymph # 1.14 K/uL 0.8-3.4 Lymph % 11.6 % Low 17.0-46.1 Mean Cell Volume 95.5 fl 80.9-99.0 Mean Corpuscular HGB 32.5 pg 25.9-32.7 Mean Corpuscular HGB Conc 34.0 g/dL 30.8-34.3 Mean Platelet Volume 9.8 fL 8.9-12.4 [place] # 0.28 K/uL Low 0.3-0.9 [place] % 2.9 % Low 4.3-13.2 Neut# 8.29 K/uL High 1.0-7.0 Neut% 84.5 % High 40.4-72.8 Platelet Count 357 K/uL 155-360 Red Blood Count 4.25 M/uL 3.90-5.40 Red Cell Distri Width %CV 13.9 % 11.7-14.4 Red Cell Distri Width SD 47.2 fl High 3-47 White Blood Count 9.8 K/uL 3.1-10.7 Laboratory test 01/10/2013 [email or web address] Import Rapid Plasma Nonreactive 52 finding Reagin Nonreactive CBC 01/10/2013 [email or web address] Import Hematocrit 35.0 % Low 36.0- 46.1 Hemoglobin 11.6 gm/dL 11.6-15.8 Mean Cell Volume 99.2 fl High 80.9-99.0 Mean Corpuscular HGB 32.9 pg High 25.9-32.7 Mean Corpuscular HGB Conc 33.1 g/dL 30.8-34.3 Mean Platelet Volume 11.1 fL 8.9-12.4 Platelet Count 285 K/uL 155-360 Red Blood Count 3.53 M/uL Low 3.90-5.40 Red Cell Distri Width %CV 14.5 % High 11.7-14.4 White Blood Count 12.5 K/uL High 3.1-10.7 Type And Screen 01/10/2013 [email or web address] Import Antibody Screen Negative Negative Patient Blood Type A Pos Laboratory test 01/05/2013 [email or web address] Import Rapid Plasma Nonreactive 53 finding Reagin Nonreactive CBC 01/05/2013 [email or web address] Import Hematocrit 35.8 % Low 36.0- 46.1 Hemoglobin 12.1 gm/dL 11.6-15.8 Mean Cell Volume 98.4 fl 80.9-99.0 Mean Corpuscular HGB 33.2 pg High 25.9-32.7 Mean Corpuscular HGB Conc 33.8 g/dL 30.8-34.3 Mean Platelet Volume 11.6 fL 8.9-12.4 Platelet Count 315 K/uL 155-360 Red Blood Count 3.64 M/uL Low 3.90-5.40 Red Cell Distri Width %CV 14.6 % High 11.7-14.4 White Blood Count 14.0 K/uL High 3.1-10.7 Type And Screen 01/05/2013 N2N/CCD Import Antibody Screen Negative Negative Patient Blood Type A Pos Laboratory test 11/29/2012 N2N/CCD Import Vaginal Strep Screen See Note 54 finding Dna Probe N. Gono + C. 11/29/2012 N2N/CCD Import Dna Probe For See Note 55 Trach. Chlamydia Trac. Dna Probe For N. Gonorrhoeae See Note 56 Laboratory test 10/09/2012 N2N/CCD Import 1 HR Glucose,Post 139 mg/dL High -138 57 finding Glucola 1 Hour Urine Glucose See Note % Negative 58 1 Hour Urine Ketone See Note Negative 59 Hemoglobin/Hematocrit 10/09/2012 N2N/CCD Import Hematocrit 30.5 % Low 36.0-46.1 Hemoglobin 10.2 gm/dL Low 11.6-15.8 CBC W/Automated Diff 09/08/2012 N2N/CCD Import Hematocrit 30.4 % Low 36.0 -46.1 Hemoglobin 10.4 gm/dL Low 11.6-15.8 Mean Cell Volume 99.7 fl High 80.9-99.0 Mean Corpuscular HGB 34.1 pg High 25.9-32.7 Mean Corpuscular HGB Conc 34.2 g/dL 30.8-34.3 Mean Platelet Volume 10.4 fL 8.9-12.4 Platelet Count 252 K/uL 155-360 Red Blood Count 3.05 M/uL Low 3.90-5.40 Red Cell Distri Width %CV 13.8 % 11.7-14.4 Red Cell Distri Width SD 48.3 fl High 3-47 White Blood Count 13.3 K/uL High 3.1-10.7 Differential-WBC Confirm 09/08/2012 N2N/CCD Import Anisocytosis 0-1+ Band% 4 % 0-8 Eosinophil% 2 % 0-5 Lymph% 19 % 17-56 Monocyte% 2 % 0-10 Neutrophils% 73 % 33-73 Platelet Estimate Normal Polychromasia 0-1+ Total Cells Counted 100 #CELLS Comprehensive Metabolic Panel 09/08/2012 N2N/CCD Import Alb/Glob 0.7 ratio Albumin 2.5 g/dL Low 3.5-5.0 Alkaline Phosphatase 72 U/L 50-136 Anion Gap 13 mEq/L 8-16 BUN 6 mg/dL 5-23 BUN/Creat 10.0 ratio Bilirubin,Total 0.1 mg/dL Low 0.2-1.2 Calcium 9.1 mg/dL 8.5-10.1 Carbon Dioxide 25 mEq/L 18-29 Chloride 109 mmol/L High 98-107 Creatinine 0.6 mg/dL 0.5-1.4 Globulin 3.6 g/dL 1.9-4.3 Glom Filtration Rate, Estimate >60 mL/min >60 Glucose 116 mg/dL High 76-115 If >60 mL/min >60 60 Potassium 3.1 mmol/L Low 3.5-5.1 SGPT/Alt 16 U/L Low 30-65 Sgot/Ast 11 U/L Low 16-40 Sodium 144 mmol/L 136-145 Total Protein 6.1 g/dL Low 6.3-8.0 Laboratory test 09/05/2012 N2N/CCD Import Urine Culture See Note 61 finding Urine Culture & 08/03/2012 N2N/CCD Import M 62 Sensitivi <See Note> Affirm 07/07/2012 N2N/CCD Import Su Negative 63 Gardnerella Positive Trichomonas Negative Type And Screen 07/07/2012 N2N/CCD Import Antibody Screen Negative Patient Blood Type A Pos Genital Culture W/ Gram 07/07/2012 N2N/CCD Import Genital Culture See Note 64 Stain Gram Stain See Note 65 Dna Probe N. Gono + 07/07/2012 N2N/CCD Import Dna Probe For See Note 66 C. Trach. Chlamydia Trac. Dna Probe For N. Gonorrhoeae See Note 67 CBS W/Automated Diff 07/07/2012 N2N/CCD Import Bas% 0.2 % 0.0-1.1 Baso # 0.02 K/uL 0.0-0.1 Eo% 1.7 % 0.0-6.6 Eos # 0.19 K/uL 0.0-0.5 Hematocrit 33.7 % Low 36.0-46.1 Hemoglobin 11.7 gm/dL 11.6-15.8 Lymph # 1.72 K/uL 0.8-3.4 Lymph % 15.2 % Low 17.0-46.1 Mean Cell Volume 94.9 fl 80.9-99.0 Mean Corpuscular HGB 33.0 pg High 25.9-32.7 Mean Corpuscular HGB Conc 34.7 g/dL High 30.8-34.3 Mean Platelet Volume 11.2 fL 8.9-12.4 [place] # 0.58 K/uL 0.3-0.9 [place] % 5.1 % 4.3-13.2 Neut# 8.79 K/uL High 1.0-7.0 Neut% 77.8 % High 40.4-72.8 Platelet Count 255 K/uL 155-360 Red Blood Count 3.55 M/uL Low 3.90-5.40 Red Cell Distri Width %CV 13.8 % 11.7-14.4 Red Cell Distri Width SD 45.7 fl 3-47 White Blood Count 11.3 K/uL High 3.1-10.7 Laboratory test 07/07/2012 N2N/CCD Import Afp,Tetra Profile Ref# [id number] 68 finding Antibody Detection See Note 69 Hepatitis B Surface Antigen Nonreactive Nonreactive 70 Rapid Plasma Reagin Nonreactive Nonreactive 71 Rubella IgG Antibody Reactive Reactive ThinPrep Pap: Cervix/Endocx See Note 72 Urine Culture See Note 73 Varicella-Zoster Virus IgG Ab 1.44 index . 74 1 Z11.3 N92.1 Z01.411 R10.2 2 NO GROWTH: FINAL REPORT 3 NORMALLY MENSTRUATING FEMALES: Follicular Phase:............... 2.3-12.6 mIU/mL Mid-Cycle Peak:................. 5.2-17.5 mIU/mL Luteal Phase:................... 1.7-9.5 mIU/mL POSTMENOPAUSAL FEMALES: On menopausal hormone therapy (MHT)... 5.9-72.8 mIU/mL Not on MHT ........................... 12.7-132.2 mIU/mL 4 . A negative result for either C. trachomatis and/or N. gonorrhoeae does not preclued an infection because results are dependent on adequate specimen collection, absence of inhibitors, and sufficient DNA to be detected. 5 Performed at: [address] [id number] Touch Up Painter: Marla Solares MD, Phone: [phone] 6 GRAM STAIN SUSPICIOUS FOR BACTERIAL VAGINOSIS 7 MANY GRAM VARIABLE COCCOBACILLI 8 RARE GR POS. BACILLI SUGGESTIVE OF LACTOBACILLUS SP. 9 RARE GRAM POSITIVE COCCI 10 Performed at: [address] [id number] Touch Up Painter: Yaron Munoz MD, Phone: [phone] Performed at: [address] [id number] Touch Up Painter: Marla Solares MD, Phone: [phone] 11 INFCE Result Units: s/co ratio Negative: < 0.8 Indeterminate: 0.8 - 0.9 Positive: > 0.[address] [facility] recommends that a positive HCV antibody result be followed up with a HCV Nucleic Acid Amplification test (701162). 12 Negative <0.91 Equivocal 0.91 - 1.09 Positive >1.09 Note: Negative indicates no antibodies detected to HSV-2. Equivocal may suggest early infection. If clinically appropriate, retest at later date. Positive indicates antibodies detected to HSV-2. 13 Negative <0.91 Equivocal 0.91 - 1.09 Positive >1.09 Note: Negative indicates no antibodies detected to HSV-1. Equivocal may suggest early infection. If clinically appropriate, retest at later date. Positive indicates antibodies detected to HSV-1. Performed at: [address] [id number] Touch Up Painter: Marla Solares MD, Phone: [phone] 14 Negative <0.91 Equivocal 0.91 - 1.09 Positive >1.09 15 R19.4 R10.9 16 Method: Sediplast Modified Westergren 17 Negative 0 - 19 Weak Positive 20 - 30 Moderate to Strong Positive >30 18 Negative 0 - 19 Weak Positive 20 - 30 Moderate to Strong Positive >30 19 Negative 0 - 3 Weak Positive 4 - 10 Positive >10 Tissue Transglutaminase (tTG) has been identified as the endomysial antigen. Studies have demonstr- ated that endomysial IgA antibodies have over 99% specificity for gluten sensitive enteropathy. 20 Negative 0 - 5 Weak Positive 6 - 9 Positive >9 Performed at: RN - [address] [id number] Touch Up Painter: Marla Solares MD, Phone: [phone] 21 Concentration Interpretation Follow-Up <16 - 50 ug/g Normal None >50 -120 ug/g Borderline Re-evaluate in 4-6 weeks >120 ug/g Abnormal Repeat as clinically indicated 22 Normal (<60 Droplets/HPF) 23 Normal (<100 Droplets/HPF) 24 Note: Persistent reduction for 3 months or more in an eGFR <60 mL/min/1.73 m2 defines CKD. Patients with eGFR values >/=60 mL/min/1.73 m2 may also have CKD if evidence of persistent proteinuria is present. The original MDRD equation for estimated GFR is not valid for patients less than 18 years of age. Additional information may be found at www.kdoqi.org. 25 INFCE Result Units: ug Elast./g Severe Pancreatic Insufficiency: <100 Moderate Pancreatic Insufficiency: 100 - 200 Normal: >200 Performed at: [address] [id number] Touch Up Painter: Marla Solares MD, Phone: [phone] Performed at: [address] [id number] Touch Up Painter: Yaron Munoz MD, Phone: [phone] 26 SEE MANUAL REPORT 27 SEE MANUAL REPORT 28 NEGATIVE for Giardia by EIA 29 NEGATIVE for Cryptosporidium by EIA Testing Performed by: [place] [address] 30 NO ENTERIC PATHOGENS ISOLATED 31 ................................................... 32 INCLUDES TESTING FOR SALMONELLA, SHIGELLA, AEROMONAS, 33 PLESIOMONAS, CAMPYLOBACTER, AND E. COLI 0157:H7 34 ................................................... 35 YERSINIA AND VIBRIO ARE NOT ROUTINELY SCREENED FOR AND 36 SHOULD BE REQUESTED SEPARATELY 37 SHIGA TOXIN 1 NOT DETECTED 38 SHIGA TOXIN 2 NOT DETECTED Method: ImmunoCard STAT/EHEC Rapid Immunochromatographic Assay 39 SEE RESULT BELOW Name: CARRILLO SELF : [address]: Laureano Zabala MD Acct: [id number] Unit: [id number] AGE: 44 Location: [facility] Re10/21/15 SEX: F Status: DEP ER SPEC: [id number] CHAPO: 10/21/15-[address]: Laureano Zabala MD REQ: [id number] RECD: 10/22/15 STATUS: GILBERT JONES DR: Linda Geiger MD _ SOURCE: URINE SPDESC: ORDERED: Urine Culture Procedure Result Reported Site Urine Culture Final 10/24/15- 0955 ML No Growth Day 2 (<1,000 CFU/mL) * ML - MAIN LAB (PSYCHIATRIC) . END OF REPORT * ML=Testing performed at Main Lab DEPARTMENT OF PATHOLOGY, [address] [place] [address] Rebel Wayne M.D. Director [facility] # [id number] 40 Negative <1:80 Borderline 1:80 Positive >1:80 Performed at: RN - [facility] [address] [id number] Touch Up Painter: Marla Solares MD, Phone: [phone] 41 NOTE CHANGE IN B12 REFERENCE RANGE 42 COLONY COUNT ! 10,000 - 20,000 CFU/ml Organism 1 ! URETHRAL LASHAUN 43 NORMALLY MENSTRUATING FEMALES: Follicular Phase:...............4-13 mIU/mL Mid-Cycle Peak:.................5-22 mIU/mL Luteal Phase:...................2 -13 mIU/mL Postmenopausal Female:........20-138 mIU/mL 44 Note: Persistent reduction for 3 months or more in an eGFR <60 mL/min/1.73 m2 defines CKD. Patients with eGFR values >/=60 mL/min/1.73 m2 may also have CKD if evidence of persistent proteinuria is present. The original MDRD equation for estimated GFR is not valid for patients less than 18 years of age. Additional information may be found at www.kdoqi.org. 45 RUN DATE: 10/18/13 [facility] LAB LIVE PAGE 1 RUN TIME: [address] [place] [address] Specimen Inquiry ----- Name: CARRILLO SELF : [address]: Heidi Wu NP Acct: [id number] Unit: [id number] AGE: 42 Location: [facility] Re10/16/13 SEX: F Status: REG REF ----- SPEC: [id number] CHAPO: 10/16/13-[address]: Heidi Wu NP REQ: [id number] RECD: 10/16/13 STATUS: COMP _ SOURCE: THROAT SPDESC: ORDERED: Throat Beta Str QUERIES: Medent Number [id number] ----- Procedure Result Verified Site ----- Throat Beta Strep Culture Final 10/18/13-0803 ML Negative For Group A Beta Streptococcus ----- END OF REPORT * ML=Testing performed at Main Lab DEPARTMENT OF PATHOLOGY, [address] [place] [address] Rebel Wayne M.D. Director [facility] Permit # [id number] 46 @Sample frozen by [id number] at 1441 on 08/17/13. 47 Test Performed by: [place] [address] Load Blocker: Garcia Tapia III, M.D. 48 Because ethnic data is not always readily available, this report includes an eGFR for both -Americans and non- Americans. The National Kidney Disease Education Program (NKDEP) does not endorse the use of the MDRD equation for patients that are not between the ages of 18 and 70, are , have extremes of body size, muscle mass, or nutritional status, or are non- or non-. According to the National Kidney Foundation, irrespective of diagnosis, the stage of the disease is based on the level of kidney function: Stage Description GFR(mL/min/1.73 m(2)) 1 Kidney damage with normal or decreased GFR 90 2 Kidney damage with mild decrease in GFR 60- 89 3 Moderate decrease in GFR 30-59 4 Severe decrease in GFR 15-29 5 Kidney failure <15 (or dialysis) 49 Unable to calculate Ind Bili as D Bili is <0.1 Unable to calculate Ind Bili as D Bili is <0.1 50 -- REFERENCE VALUE -- 25-HYDROXY D TOTAL (D2+D3) Optimum levels in the healthy population are 20-50, patients with bone disease may benefit from higher levels within this range. Test Performed by: [address] [id number] Load Blocker: Garcia Tapia III, M.D. 51 Note: Persistent reduction for 3 months or more in an eGFR <60 mL/min/1.73 m2 defines CKD. Patients with eGFR values >/=60 mL/min/1.73 m2 may also have CKD if evidence of persistent proteinuria is present. The original MDRD equation for estimated GFR is not valid for patients less than 18 years of age. Additional information may be found at www.kdoqi.org. 52 PENDING; TEST PERFORMED ON MONDAYS AND THURSDAYS 53 PENDING; TEST PERFORMED ON MONDAYS AND THURSDAYS 54 Organism 1 ! BETA STREPTOCOCCUS GROUP B QUANTITY ! FROM BROTH RECOMMENDED THERAPY: ! PENICILLIN OR AMPICILLIN. 55 NEGATIVE FOR CHLAMYDIA TRACHOMATIS BY DNA HYBRIDIZATION ASSAY. THIS TEST IS APPROVED FOR OCULAR AND UROGENITAL SITES ONLY. 56 NEGATIVE FOR NEISSERIA GONORRHOEAE BY DNA HYBRIDIZATION ASSAY. THIS METHOD IS APPROVED FOR UROGENITAL SITES ONLY. 57 POST GLUCOLA 58 NO SPECIMEN RECEIVED 59 NO SPECIMEN RECEIVED 60 Note: Persistent reduction for 3 months or more in an eGFR <60 mL/min/1.73 m2 defines CKD. Patients with eGFR values >/=60 mL/min/1.73 m2 may also have CKD if evidence of persistent proteinuria is present. The original MDRD equation for estimated GFR is not valid for patients less than 18 years of age. Additional information may be found at www.kdoqi.org. 61 NO GROWTH: FINAL REPORT 62 ------- RUN DATE: 08/05/12 [facility] NMI LIVE PAGE 1 RUN TIME: 957 Specimen Inquiry RUN USER: INTERFACE ----- Name: CARRILLO SELF Status: REG REF Re08/03/12 Age/Sex: 41/M Unit#: [id number] Location: [facility] : [birth year] ----- SPEC #: [id number] CHAPO: 08/03/12 STATUS: COMP REQ #: [id number] RECD: 08/03/12 [facility] DR: Samia Geiger MDmarie SOURCE: URINE ENTR: 08/03/[address]: SPDES: ORDERED: URINE C S QUERIES: MEDENT REQUISITION # [id number] SPECIMEN DESCRIPTION: URINE, RANDOM ACT WKST: UR 08/05/12 #1 ----- Procedure Result Verified Site ----- > URINE CULTURE SENSITIVI Final 08/05/12-957 ML SCANT NORMAL URETHRAL OR PERINEAL LASHAUN ----- ML - [facility] Permit #[id number] [address] [place] [address] ----- DEPARTMENT OF PATHOLOGY, [address] [place] [address] [facility] Permit #[id number] Kevin Pennington M.D. Web Marketing Assistant ----- Special Testing [address], [address] [place] [address] AFFIRM VAGINOSIS / VAGINITIS REPORT Name: RODRIGO SELFCI : 1970 (Age: 41) Sex: F Location: [facility] Date Collected: 07/07/2012 Billing #: [id number] Date Received: 07/07/2012 Physician(s): MARIA ELENA LOVE MD Source of Specimen: Vaginal Results: Su species DNA Probe NEGATIVE Gardnerella vaginalis DNA Probe POSITIVE Trichomonas vaginalis DNA Probe NEGATIVE Reported: 07/10/[address] Olga FLORES (ASCP) [facility] ICD-9 Codes: A: 616.10 64 Organism 1 ! GARDNERELLA VAGINALIS QUANTITY ! MANY 65 GRAM STAIN ! GRAM STAIN SUSPICIOUS FOR BACTERIAL VAGINOSIS ! MANY GRAM VARIABLE COCCOBACILLI ! VERY FEW GR POS. BACILLI SUGGESTIVE OF LACTOBACILLUS ! SP. ! CURVED GRAM NEG BACILLI SUGGESTIVE OF MOBILUNCUS 66 NEGATIVE FOR CHLAMYDIA TRACHOMATIS BY DNA HYBRIDIZATION ASSAY. THIS TEST IS APPROVED FOR OCULAR AND UROGENITAL SITES ONLY. 67 NEGATIVE FOR NEISSERIA GONORRHOEAE BY DNA HYBRIDIZATION ASSAY. THIS METHOD IS APPROVED FOR UROGENITAL SITES ONLY. 68 FORWARDED TO REFERENCE LABORATORY. 69 No reportable results 70 HBsAg not detected; does not exclude the possibility of exposure to or early acute infections with HBV. 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 PAP ACCESSI QUESTIONNAIRE 12/07 PERTINENT CLINICAL HISTORY FOR PAP (CEO AND PRESIDENT ) CYTOLOGY (Check all that apply): ? Y Post ? Menopause? LMP date : 03/28/12 If patient had related surgical procedure: Related Therapy: Significant Clinical History: ===== DISCLAIMER: The Pap smear is a screening test and not a diagnostic procedure. False negative and false positive results can and do occur for a number of reasons. Regular screening provides an aid in detecting treatable cervical abnormalities, but should not be used as the only means for detecting cervical dysplasia and carcinoma. ----- EVA Santos 07/13/12 1337 ----- 73 NO SPECIMEN SENT 74 Nonimmune <0.91 Equivocal 0.91 - 1.09 Immune >1.09 Performed at: RN - [facility] [address] [id number] Touch Up Painter: Marla Solares MD, Phone: [phone] Procedures Date Code Description Status 01/31/2019 42889 Asp./Injection major joint Completed 01/10/2013 81489 Vaginal Delivery [facility] Completed 01/07/2013 42224 Non-Stress Test (NST) Completed 01/05/2013 27680 Contraction Stress Test Completed 01/03/2013 16434 Antepartum 7 Or More Total Office Visit Completed 12/27/2012 73016 Antepartum 7 Or More Total Office Visit Completed 12/20/2012 11026 Antepartum 7 Or More Total Office Visit Completed 12/13/2012 34850 Antepartum 7 Or More Total Office Visit Completed 12/06/2012 94747 Antepartum 7 Or More Total Office Visit Completed 11/29/2012 23260 Antepartum 7 Or More Total Office Visit Completed 11/14/2012 16360 Antepartum 7 Or More Total Office Visit Completed 11/07/2012 07553 Antepartum 7 Or More Total Office Visit Completed 10/31/2012 69398 Antepartum 7 Or More Total Office Visit Completed 10/09/2012 23533 Antepartum 7 Or More Total Office Visit Completed 09/05/2012 73067 Antepartum 7 Or More Total Office Visit Completed 08/03/2012 78848 Antepartum 7 Or More Total Office Visit Completed Encounters Type Date Location Provider Dx Diagnosis Office Visit 04/04/2018 Family Medicine Monik Ruiz, N92.1 Excessive and 11:00a [facility] CNM frequent menstruation with irregular cycle Office Visit 07/04/2017 Orthopaedic Office EsdrasRandy harrison, S51.811D Laceration w/o 3:15p M.D. 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
[2019-03-04 13:24] VITALS: BP 114/75
[2019-03-04] MEDS ORDERED: Ibuprofen TAB* 600 MG PO ONE (14:01)
--- NOTE | 2019-03-04 14:02 | UC ---
Shoulder Pain HPI - HPI Summary HPI Summary: Helping daughter cleaning new apartment yesterday. Weber a pop in left shoulder when she was washing above her. Hurts to move much more than 45 degrees. Seeing orthopedics for right shoulder pain. patient points to area of pain along the mid deltoid. no visible swelling or deformity - History of Current Complaint Chief Complaint: UCUpperExtremity Stated Complaint: SHOULDER INJURY (LEFT) Time Seen by Provider: 03/04/19 13:32 Hx Obtained From: Patient Hx Last Menstrual Period: 01/2019 ?: No Onset/Duration: Sudden Onset, Lasting Days Pain Intensity: 7 - Allergies/Home Medications Allergies/Adverse Reactions: Allergies Allergy/AdvReac Type Severity Reaction Status Date / Time codeine Allergy Severe Swelling Verified 03/04/19 13:21 Of Face,Lips,& Throat meperidine [From Demerol] Allergy Unknown Verified 03/04/19 13:21 Reaction Details morphine Allergy Unknown Verified 03/04/19 13:21 Reaction Details Home Medications: Home Medications Acetaminophen [Tylenol Arthritis] 1,300 mg PO ONCE PRN 03/04/19 [History Confirmed 03/04/19] Cyclobenzaprine TAB* [Flexeril 10 MG TAB*] 10 mg PO BID PRN 03/04/19 [History Confirmed 03/04/19] PMH/Surg Hx/FS Hx/Imm Hx Previously Healthy: Yes - Surgical History Surgical History: Yes Surgery Procedure, Year, and Place: D&c, gallbladder , nose surgery d/t fx. - Family History Known Family History: Positive: Other - LUPUS 3 relatives Negative: Cardiac Disease, Hypertension - Social History Alcohol Use: Occasionally Substance Use Type: None Smoking Status (MU): Heavy Every Day Tobacco Smoker Type: Cigarettes Amount Used/How Often: 1 1/2 pack per day Length of Time of Smoking/Using Tobacco: 25 yrs Have You Smoked in the Last Year: Yes Household Exposure Type: Cigarettes Review of Systems All Other Systems Reviewed And Are Negative: Yes Constitutional: Positive: Negative Skin: Positive: Negative Eyes: Positive: Negative ENT: Positive: Negative Respiratory: Positive: Negative Cardiovascular: Positive: Negative Gastrointestinal: Positive: Negative Genitourinary: Positive: Negative Motor: Positive: Negative Neurovascular: Positive: Negative Musculoskeletal: Positive: Arthralgia, Decreased ROM, Myalgia Neurological: Positive: Negative Psychological: Positive: Negative Is Patient Immunocompromised?: No Physical Exam Triage Information Reviewed: Yes Appearance: Well-Appearing, Well-Nourished, Pain Distress Vital Signs: Initial Vital Signs Temp 99.5 F 03/04/19 13:18 Pulse 76 03/04/19 13:18 Resp 16 03/04/19 13:18 BP 114/75 03/04/19 13:18 Pulse Ox 98 03/04/19 13:18 Eye Exam: Normal ENT Exam: Normal Dental Exam: Normal Neck exam: Normal Respiratory Exam: Normal Cardiovascular Exam: Normal Bowel Sounds: Positive: Present Musculoskeletal: Positive: No Edema, Strength Limited @ - patient sates she cannot lift it, refuses to do ROM activity, ROM Limited @ Psychological Exam: Normal Skin Exam: Normal Shoulder Course/Dx - Course Course Of Treatment: hx obtained, exam performed ,meds reviewed, xray obtained, sling provided, ibuprofen given. - Differential Dx/Diagnosis Differential Diagnosis/HQI/PQRI: Fracture (Closed), Sprain, Strain Provider Diagnosis: Strain of deltoid muscle Discharge - Sign-Out/Discharge Documenting (check all that apply): Patient Departure All imaging exams completed and their final reports reviewed: No Studies - Discharge Plan Condition: Stable Disposition: HOME Patient Education Materials: Muscle Strain (ED) Referrals: Baljit Kumar MD [Primary Care Provider] - Dada Martin MD [Medical Doctor] - Additional Instructions: 1. use the sling for support, your xray was negative for any dislocation or fracture 2. continue with tylenol 1000 mg and 400 mg of ibuprofen every 6 hours 3. heat the area and being to work throught the Range of motion. 4. If not improving in the next 3-4 day, follow up with your orthopedic or Dr Martin for follow up - Billing Disposition and Condition Condition: STABLE Disposition: Home - Attestation Statements Provider Attestation: Per institutional requirements, I have reviewed the chart, however, I was not consulted specifically or made aware of this patient by the midlevel provider. I did not personally evaluate, interact with , or disposition this patient.
== END 2019-03-04 14:40 | disposition home or self-care (01) ==
LOC: UCCORT 11:27
DX: S46.812A Strain of other muscles, fascia and tendons at shoulder and upper arm level, left arm, initial encounter (principal); F17.210 Nicotine dependence, cigarettes, uncomplicated; Z88.5 Allergy status to narcotic agent; X58.XXXA Exposure to other specified factors, initial encounter; Y92.9 Unspecified place or not applicable
CPT/HCPCS: 99213; A9270-GY; G0463

== ENCOUNTER 2019-07-30 11:31 | Emergency (ER) | payer OTHER ==
[2019-07-30 12:20] VITALS: BP 132/79
[2019-07-30] MEDS ORDERED: Ketorolac INJ* 30 MG/ML 1 ML VIAL IM ONE (12:39)
[2019-07-30] MEDS ORDERED: metroNIDAZOLE TAB* 250 MG PO ONE (12:39)
--- NOTE | 2019-07-30 12:48 | UC ---
Back Pain HPI - HPI Summary HPI Summary: Subjective fever and midline low back pain "everything's locked up tight, shooting, stabbing.." radiating into right hip, pelvis, and down leg for six days. Saw PCP three days ago, was diagnosed with sciatica and possilble kidney stone, urine culture sent (per EMR garnderella vaginalis), and treated with acetaminophen, cyclobenzaprine "it's takin' the edge off of it...", and Flomax ( not taking). Patient has also tried ice and heat. Patient does not think it is sciatica. Verborrhea. - History of Current Complaint Chief Complaint: UCBackPain Stated Complaint: LOWER BACK PAIN Time Seen by Provider: 07/30/19 12:26 Hx Obtained From: Patient Hx Last Menstrual Period: 12/2018 ?: No Onset/Duration: Sudden Onset, Lasting Days Timing: Lasting Days Severity Initially: Moderate Severity Currently: Severe Pain Intensity: 20 Back Pain: Is Diffuse - low back down right leg Character: Throbbing, Spasmodic Aggravating Factor(s): Lifting, Walking Alleviating Factor(s): Position Associated Signs And Symptoms: Positive: Fever, Weakness, Pain with Weight Bearing - Allergies/Home Medications Allergies/Adverse Reactions: Allergies Allergy/AdvReac Type Severity Reaction Status Date / Time codeine Allergy Severe Swelling Verified 07/30/19 12:12 Of Face,Lips,& Throat meperidine [From Demerol] Allergy Unknown Verified 07/30/19 12:12 Reaction Details morphine Allergy Unknown Verified 07/30/19 12:12 Reaction Details PMH/Surg Hx/FS Hx/Imm Hx Previously Healthy: Yes - Surgical History Surgical History: Yes Surgery Procedure, Year, and Place: D&c, gallbladder , nose surgery d/t fx. - Family History Known Family History: Positive: Other - LUPUS 3 relatives Negative: Cardiac Disease, Hypertension - Social History Alcohol Use: Occasionally Substance Use Type: None Smoking Status (MU): Heavy Every Day Tobacco Smoker Type: Cigarettes Amount Used/How Often: 1 1/2 PPD Length of Time of Smoking/Using Tobacco: Since Age 17 Have You Smoked in the Last Year: Yes Household Exposure Type: Cigarettes Review of Systems All Other Systems Reviewed And Are Negative: Yes Constitutional: Positive: Fever Gastrointestinal: Positive: Abdominal Pain - lower Genitourinary: Positive: Dysuria Musculoskeletal: Positive: Arthralgia, Decreased ROM, Myalgia Is Patient Immunocompromised?: No Physical Exam Triage Information Reviewed: Yes Appearance: Well-Nourished, Ill-Appearing, Pain Distress Vital Signs: Initial Vital Signs Temp 100.5 F 07/30/19 12:09 Pulse 94 07/30/19 12:09 Resp 20 07/30/19 12:09 BP 132/79 07/30/19 12:09 Pulse Ox 98 07/30/19 12:09 Vital Signs Reviewed: Yes ENT Exam: Normal Dental Exam: Normal Neck exam: Normal Respiratory Exam: Normal Respiratory: Positive: Chest non-tender, Lungs clear, Normal breath sounds Cardiovascular Exam: Normal Cardiovascular: Positive: RRR, No Murmur, Pulses Normal Abdominal Exam: Normal Bowel Sounds: Positive: Present Musculoskeletal: Positive: No Edema, Strength Limited @ - cant stand up straight , right leg weakness, ROM Limited @ - trunk extention, and leg movement Neurological Exam: Normal Psychological Exam: Normal Skin Exam: Normal Back Pain Course/Dx - Course Course Of Treatment: hx obtained, exam performed ,meds reviewed, UA was done yesterday results positive for UTI gardnerella vaginalis, started on Flagyl today. Xray ordered and toradol injection given for pain. - Differential Dx/Diagnosis Differential Diagnosis/HQI/PQRI: Arthritis, Herniated Disc, Strain, Sprain Provider Diagnosis: Sacroiliitis, UTI (urinary tract infection) Discharge ED - Sign-Out/Discharge Documenting (check all that apply): Patient Departure All imaging exams completed and their final reports reviewed: No Studies - Discharge Plan Condition: Stable Disposition: HOME Prescriptions: metroNIDAZOLE [Flagyl] 500 mg PO BID #13 tablet Patient Education Materials: Urinary Tract Infection in Women (ED), Lower Back Exercises (ED), Sacroiliitis (ED) Referrals: Baljit Kumar MD [Primary Care Provider] - Additional Instructions: 1. continue with flexeril and tylenol for the pain 2. take the flagyl for the UTI and if fever and lower abdominal pain continue more than 24-48 hours please follow up for further workup. 3. rest, get plenty of fluids. - Billing Disposition and Condition Condition: STABLE Disposition: Home
== END 2019-07-30 13:54 | disposition home or self-care (01) ==
LOC: UCCORT 11:31
DX: M46.1 Sacroiliitis, not elsewhere classified (principal); N39.0 Urinary tract infection, site not specified; F17.210 Nicotine dependence, cigarettes, uncomplicated; Z88.5 Allergy status to narcotic agent
CPT/HCPCS: 72110; 96372; 99212; A9270-GY; G0463; J1885

== ENCOUNTER 2019-09-13 09:04 | Emergency (ER) | payer OTHER ==
--- OUTSIDE RECORDS SUMMARY | 2019-09-13 09:13 | XMS REPORT | Continuity of Care Document ---
:1970 External Reference #:[id number] Author Name Dewayne Martinez MD Address [address] [place] [id number] Care Team Providers Name Role Phone Monique Chapman MD - Family Care Team Information Instruction Librarian Medicine Rekha Palacio MD - Orthopaedic Care Team Information Instruction Librarian [phone] Surgery Problems Active Problems Provider Date Gastroesophageal reflux disease Sissy Mercado [facility] Onset: 01/07/2015 [facility]es[facility]: 01/07/2015 Kidney stone Sissy Mercado [facility] Onset: 01/07/2015 Deviated nasal septum Sissy Mercado [facility] Onset: 01/07/2015 Cigarette smoker Sissy Mercado [facility] Onset: 01/07/2015 Multiple joint pain Linda Geiger MD Onset: 08/04/2013 Open wound of forearm Trupti Abbott PA Onset: 06/30/2017 Skin sensation disturbance Trupti Abbott PA Onset: 06/30/2017 Social History Type Date Description Comments Sex Unknown Tobacco Use Start: Unknown currently smokes 1/2 Pack Daily Smoking Status Reviewed: 09/10/19 currently smokes 1/2 Pack Daily Smokeless Tobacco Never Used Smokeless Tobacco ETOH Use Rarely consumes alcohol Tobacco Use Start: Unknown Heavy tobacco smoker (more than 10 cigarettes/day) Recreational Drug Use Denies Drug Use Allergies, Adverse Reactions, Alerts Active Allergies Reaction Severity Comments Date Levaquin 01/31/2013 Morphine 10/31/2012 Meperidine 10/15/2014 Demerol 10/31/2012 Codeine 10/31/2012 Medications Active Medications SIG Qnty Indications Ordering Date Provider Ibuprofen one tablet by 15tabs Rekha Palacio, 01/31/2019 800mg Tablets mouth every 8 MD hours as needed pain Cyclobenzaprine HCL 1 by mouth 90tabs Fely, 10/16/2013 10mg three times a MD Linda Tablets day as needed Medications Administered in Office Medication SIG Qnty Indications Ordering Provider Date Methylprednisolone acetate Rekha Palacio MD 01/31/2019 (Depomedrol) 80mg injection Injection Depomedrol 40mg/1cc Rekha Palacio MD 01/31/2019 (methylprednisolone acetate) Injection Immunizations CPT Code Status Date Vaccine Lot # [id number] Given 10/09/2012 flu vaccination Vital Signs Date Vital Result Comment 02/05/2019 9:23am BP Systolic 110 mmHg BP Diastolic 76 mmHg Body Temperature 98.3 F Heart Rate 80 /min Height 60 inches 5'0" Weight 131.00 lb BMI (Body Mass Index) 25.6 kg/m2 BSA (Body Surface Area) 1.56 m2 [place] body weight in kilograms 45 kg O2 % BldC Oximetry 96 % room air Left ear audiology results 6 01/31/2019 8:55am BP Systolic 110 mmHg BP Diastolic 76 mmHg Body Temperature 97.8 F Heart Rate 76 /min Height 62 inches 5'2" Weight 134.00 lb BMI (Body Mass Index) 24.5 kg/m2 BSA (Body Surface Area) 1.61 m2 [place] body weight in kilograms 50 kg O2 % BldC Oximetry 99 % Pain Level 7 Results Description No Information Available Procedures Date Code Description Status 09/10/2019 05595 Gonioscopy Completed 09/10/2019 93321 Eye Exam New Patient Comprehensive Completed 09/10/2019 46681 Ophthalmic Ultrasound, Corneal Pachymetry, Completed Unilateral/Bilateral 03/19/2019 33993 Nerve Conduction 3-4 Studies Completed 03/19/2019 65831 Needle Electromyography Each Extremity W/Related Completed Paraspinal Areas Medical Devices Description No Information Available Encounters Description No Information Available Assessments Date Code Description Provider 09/10/2019 H40.013 Open angle with borderline findings, low risk, Dewayne Martinez MD bilateral 03/19/2019 R20.0 Anesthesia of skin Olimpia Park MD 03/19/2019 M79.601 Pain in right arm Olimpia Park MD 03/19/2019 M79.644 Pain in right finger(s) Cator, Olimpia, MD 03/19/2019 M54.2 Cervicalgia Olimpia Park MD Plan of Treatment Future Appointment(s):10/08/2019 9:15 am - Dewayne Martinez MD at [facility]/ 14/2019 - Dewayne Martinez MDH40.013 Open angle with borderline findings, low risk , bilateralComments:- based upon c/d ratio- iop 17, 18- pachymetry 542, 543- angle open on gonioscopy- discussed glaucoma, potential for vision loss, potential for iop-lowering such as drops, laser, surgery- recommend vf 24-2, oct rnfl 4-6 weeks with iop checkFollow up:recommend vf 24-2, oct rnfl 4-6 weeks with iop check Functional Status Description No Information Available Mental Status Description No Information Available Referrals Description No Information Available
[2019-09-13 10:02] VITALS: BP 123/59
--- NOTE | 2019-09-13 10:34 | UC ---
Back Pain HPI - HPI Summary HPI Summary: Patient is a 48yo female presenting with complaint of lower back pain, right hip pain, and pelvic pain x1 month. States the pain has been "back and forth" between here and her pcp with no answer to her pain. Notes "stabbing and shooting" lower back pain. Notes bilateral leg muscle soreness, worse on right. She has had negative xray, but states she had a possible SI joint dislocation. Denies difficulty or changes of BMs and urination. Denies urinary symptoms. Denies possibility of . Denies abdominal pain. Denies nausea and vomiting. Notes history of kidney stones but says this pain does not feel like that. Patient notes history of sciatica, fibromyalgia, and mixed connective tissue disorder. States she has been taking tylenol and flexeril without any relief. - History of Current Complaint Chief Complaint: UCBackPain Stated Complaint: LOWER BACK, RT HIP, LEG PAIN Hx Last Menstrual Period: 09/04/19 Onset/Duration: Gradual Onset, Lasting Weeks Timing: Constant Severity Initially: Moderate Severity Currently: Severe Pain Intensity: 8 Pain Scale Used: 0-10 Numeric - Allergies/Home Medications Allergies/Adverse Reactions: Allergies Allergy/AdvReac Type Severity Reaction Status Date / Time codeine Allergy Severe Swelling Verified 09/13/19 10:02 Of Face,Lips,& Throat meperidine [From Demerol] Allergy Unknown Verified 09/13/19 10:02 Reaction Details morphine Allergy Unknown Verified 09/13/19 10:02 Reaction Details PMH/Surg Hx/FS Hx/Imm Hx - Surgical History Surgical History: Yes Surgery Procedure, Year, and Place: D&c, gallbladder , nose surgery d/t fx. - Family History Known Family History: Positive: Other - LUPUS 3 relatives Negative: Cardiac Disease, Hypertension - Social History Alcohol Use: Occasionally Substance Use Type: None Smoking Status (MU): Heavy Every Day Tobacco Smoker Type: Cigarettes Amount Used/How Often: 1 1/2 PPD Length of Time of Smoking/Using Tobacco: Since Age 17 Have You Smoked in the Last Year: Yes Household Exposure Type: Cigarettes Review of Systems All Other Systems Reviewed And Are Negative: Yes Constitutional: Positive: Negative. Negative: Fever, Chills Skin: Positive: Negative Respiratory: Positive: Negative Cardiovascular: Positive: Negative Gastrointestinal: Positive: Negative Genitourinary: Positive: Negative Motor: Positive: Weakness Musculoskeletal: Positive: Arthralgia, Decreased ROM, Myalgia. Negative: Calf Tenderness, Edema Neurological: Negative: Paresthesia, Numbness Physical Exam Triage Information Reviewed: Yes Appearance: Well-Nourished, Pain Distress Vital Signs: Initial Vital Signs Temp 98 F 09/13/19 09:55 Pulse 82 09/13/19 09:55 Resp 18 09/13/19 09:55 BP 123/59 09/13/19 09:55 Pulse Ox 100 09/13/19 09:55 Vital Signs Reviewed: Yes Eyes: Positive: Conjunctiva Clear ENT: Positive: Hearing grossly normal Neck: Positive: Supple Respiratory Exam: Normal Respiratory: Positive: Lungs clear, Normal breath sounds, No respiratory distress Cardiovascular Exam: Normal Cardiovascular: Positive: RRR Abdomen Description: Positive: Nontender, CVA Tenderness (R), CVA Tenderness (L) Musculoskeletal Exam: Normal Musculoskeletal: Positive: Strength Intact, No Edema, ROM Limited @ - hip flexion due to pain Neurological: Positive: Alert Psychological: Positive: Consolable Back Pain Course/Dx - Course Course Of Treatment: Discussed with patient that her complex medical history and current pain distress warrant further imaging and lab work. I discussed the patient with Dr. Whelan who agreed the patient will be best cared for and managed in the emergency room. I informed the patient that it is best she go to the ED for further evaluation. Her VS are normal and she has a ride to the emergency room. She declined transportation via ambulance. Patient voiced understanding and agreed to the treatment plan. - Differential Dx/Diagnosis Provider Diagnosis: Lower back pain, Right hip pain Discharge ED - Sign-Out/Discharge Documenting (check all that apply): Patient Departure All imaging exams completed and their final reports reviewed: No Studies - Discharge Plan Condition: Stable Disposition: HOME-RECOMMEND TO ED Referrals: Monique Chapman MD [Primary Care Provider] - Additional Instructions: The doctor that evaluated you today thinks that you need additional testing that can be completed the emergency department. It is recommended that you go directly to emergency department for further evaluation. This evaluation included blood work or imaging. This testing will be directed and decided by the provider that evaluates you at the emergency department. If pain becomes worse, you feel lightheaded, you have uncontrolled vomiting, or you have any other concerns while you are being driven to emergency department as recommended to pullover and contact 911. - Billing Disposition and Condition Condition: STABLE Disposition: Home-Recommend to ED
== END 2019-09-13 10:20 | disposition home health service (06) ==
LOC: UCCORT 09:04
DX: M54.5 Low back pain (principal); M25.551 Pain in right hip; Z88.5 Allergy status to narcotic agent; F17.210 Nicotine dependence, cigarettes, uncomplicated
CPT/HCPCS: 99212; G0463

== ENCOUNTER 2019-10-07 13:11 | Emergency (ER) | payer OTHER ==
--- NOTE | 2019-10-07 14:00 | UC ---
Throat Pain/Nasal Ralph HPI - HPI Summary HPI Summary: Sore throat and fever for 2-3 days - History of Current Complaint Stated Complaint: ST,FEVER Time Seen by Provider: 10/07/19 13:57 Hx Obtained From: Patient Hx Last Menstrual Period: 09/04/19 ?: No Onset/Duration: Gradual Onset Severity: Mild Cough: None Associated Signs & Symptoms: Positive: Fever Related History: Smoking - Allergies/Home Medications Allergies/Adverse Reactions: Allergies Allergy/AdvReac Type Severity Reaction Status Date / Time codeine Allergy Severe Swelling Verified 10/07/19 14:09 Of Face,Lips,& Throat meperidine [From Demerol] Allergy Unknown Verified 10/07/19 14:09 Reaction Details morphine Allergy Unknown Verified 10/07/19 14:09 Reaction Details PMH/Surg Hx/FS Hx/Imm Hx Previously Healthy: Yes - Surgical History Surgical History: Yes Surgery Procedure, Year, and Place: D&c, gallbladder , nose surgery d/t fx. - Family History Known Family History: Positive: Other - LUPUS 3 relatives Negative: Cardiac Disease, Hypertension - Social History Alcohol Use: Occasionally Substance Use Type: None Smoking Status (MU): Heavy Every Day Tobacco Smoker Type: Cigarettes Amount Used/How Often: 1 1/2 PPD Length of Time of Smoking/Using Tobacco: Since Age 17 Have You Smoked in the Last Year: Yes Household Exposure Type: Cigarettes Review of Systems All Other Systems Reviewed And Are Negative: Yes Constitutional: Positive: Fever ENT: Positive: Sore Throat Neurological: Positive: Headache - Mild headache Is Patient Immunocompromised?: No Physical Exam Triage Information Reviewed: Yes Appearance: Well-Appearing, No Pain Distress, Well-Nourished Vital Signs Reviewed: Yes Eyes: Positive: Conjunctiva Clear ENT: Positive: Pharynx normal, TMs normal, Uvula midline Neck exam: Normal Neck: Positive: Supple, Nontender, No Lymphadenopathy Respiratory: Positive: Lungs clear, Normal breath sounds, No respiratory distress, No accessory muscle use Cardiovascular: Positive: RRR, No Murmur, Pulses Normal, Brisk Capillary Refill Abdomen Description: Positive: Nontender, No Organomegaly, Soft. Negative: CVA Tenderness (R), CVA Tenderness (L), Hepatomegaly, Splenomegaly Bowel Sounds: Positive: Present Musculoskeletal Exam: Normal Neurological Exam: Normal Psychological Exam: Normal Skin Exam: Normal Throat Pain/Nasal Course/Dx - Course Course Of Treatment: Rapid strep negative - Differential Dx/Diagnosis Provider Diagnosis: Pharyngitis Discharge ED - Sign-Out/Discharge Documenting (check all that apply): Patient Departure All imaging exams completed and their final reports reviewed: No Studies - Discharge Plan Condition: Good Disposition: HOME Patient Education Materials: Pharyngitis (ED) Referrals: Monique Chapman MD [Primary Care Provider] - Additional Instructions: Increase fluids, Tylenol/Motrin as directed for fever. Recheck in 3-4 days if no improvement - Billing Disposition and Condition Condition: GOOD Disposition: Home
[2019-10-07 14:08] VITALS: BP 113/79
== END 2019-10-07 14:36 | disposition home or self-care (01) ==
LOC: UCCORT 13:11
DX: J02.9 Acute pharyngitis, unspecified (principal); R51 Headache; F17.210 Nicotine dependence, cigarettes, uncomplicated; Z88.5 Allergy status to narcotic agent; Z88.8 Allergy status to other drugs, medicaments and biological substances
CPT/HCPCS: 87651; 99211; G0463

== ENCOUNTER 2020-02-10 12:24 | Emergency (ER) | payer OTHER ==
--- OUTSIDE RECORDS SUMMARY | 2020-02-10 14:24 | XMS REPORT | Continuity of Care Document ---
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 Installer [phone] Problems Active Problems Provider Date Fibromyalgia Casey Palomino DO MPH Onset: 01/23/2020 Tobacco user Casey Palomino DO, MPH Onset: 01/23/2020 Vitamin deficiency Casey Palomino DO, MPH Onset: 01/23/2020 Degenerative joint disease involving multiple Casey Palomino DO MPH Onset: joints Social History Type Date Description Comments Sex Unknown ETOH Use Occasionally consumes alcohol Tobacco Use Start: Unknown Patient is a current smoker, smokes every day Recreational Drug Use Denies Drug Use Smoking Status Reviewed: 02/06/20 Patient is a current smoker, smokes every day Allergies, Adverse Reactions, Alerts Active Allergies Reaction Severity Comments Date Morphine 03/22/2019 Codeine 03/22/2019 Demerol 03/22/2019 Levaquin 03/22/2019 Meperidine 03/22/2019 Medications Active Medications SIG Qnty Indications Ordering Provider Date Tylenol Extra si by mouth Unknown Strength twice a day as 500mg Tablets directed History Medications Gabapentin take 1 capsules by 30caps Casey Palomino, 01/23/2020 - 100mg mouth three times a DO, MPH 02/06/2020 Capsules day Immunizations Description No Information Available Vital Signs Date Vital Result Comment 02/06/2020 11:19am BP Systolic 128 mmHg BP Diastolic 78 mmHg Heart Rate 80 /min Respiratory Rate 20 /min Height 61 inches 5'1" Weight 138.00 lb Pain Level 8 Pain at this time. Pain Level With Medicine 7 on average with meds Pain Level Without Medicine 9 without meds BMI (Body Mass Index) 26.1 kg/m2 01/23/2020 2:06pm BP Systolic 130 mmHg BP Diastolic 78 mmHg Heart Rate 74 /min Respiratory Rate 20 /min Height 61 inches 5'1" Weight 138.00 lb Pain Level 8 Pain at this time. Pain Level Without Medicine 10 Without meds BMI (Body Mass Index) 26.1 kg/m2 Results Description No Information Available Procedures Date Code Description Status 01/23/2020 87297 Omt 5-6 Body Regions Completed 01/23/2020 41776 Brief Emotional/Behav Assessment W/ Scoring Doc Per Completed Standard Inst Medical Devices Description No Information Available Encounters Type Date Location Provider Dx Diagnosis Office Visit 01/23/2020 Main Office as Of Casey Palomino DO, G89.29 Other chronic pain 1:45p 12/29/13 MPH M54.5 Low back pain M54.2 Cervicalgia M54.6 Pain in thoracic spine M15.0 Primary generalized (osteo)arthritis M79.7 Fibromyalgia M99.01 Segmental and somatic dysfunction of cervical region M35.9 Systemic involvement of connective tissue, unspecified M99.03 Segmental and somatic dysfunction of lumbar region Z13.31 Encounter for screening for depression M99.07 Segmental and somatic dysfunction of upper extremity 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, unspecified E56.8 Deficiency of other vitamins Z87.19 Personal history of other diseases of the digestive system F17.210 Nicotine dependence, cigarettes, uncomplicated M25.511 Pain in right shoulder M25.512 Pain in left shoulder M99.02 Segmental and somatic dysfunction of thoracic region Z71.3 Dietary counseling and surveillance Z71.89 Other specified counseling Assessments Date Code Description Provider 01/23/2020 G89.29 Other chronic pain Casey Palomino DO, MPH 01/23/2020 M54.5 Low back pain Casey Palomino DO, MPH 01/23/2020 M54.2 Cervicalgia Casey Palomino DO, MPH 01/23/2020 M54.6 Pain in thoracic spine PalominoCasey sams DO, MPH 01/23/2020 M15.0 Primary generalized (osteo)arthritis Candelario Casey, DO, MPH 01/23/2020 M79.7 Fibromyalgia PalominoMoshe samsph, DO, MPH 01/23/2020 M99.01 Segmental and somatic dysfunction of Palomino, Casey, DO, MPH cervical region 01/23/2020 M35.9 Systemic involvement of connective tissue, Candelario Casey, DO , MPH unspecified 01/23/2020 M99.03 Segmental and somatic dysfunction of lumbar Palomino, Casey, DO, MPH region 01/23/2020 Z13.31 Encounter for screening for depression PalominoCasey sams, DO, MPH 01/23/2020 M99.07 Segmental and somatic dysfunction of upper PalominoMoshe samsph, DO, MPH extremity 01/23/2020 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 PalominoMoshe samsph , DO, MPH 01/23/2020 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, unspecified Candelario Casey, DO, MPH 01/23/2020 E56.8 Deficiency of other vitamins PalominoMoshe samsph, DO, MPH 01/23/2020 Z87.19 Personal history of other diseases of the PalominoMoshe samsph, DO , MPH digestive system 01/23/2020 F17.210 Nicotine dependence, cigarettes, Casey Palomino, DO, MPH uncomplicated 01/23/2020 M25.511 Pain in right shoulder Casey Palomino, DO, MPH 01/23/2020 M25.512 Pain in left shoulder Casey Palomino, DO, MPH 01/23/2020 M99.02 Segmental and somatic dysfunction of PalominoCasey sams, DO, MPH thoracic region 01/23/2020 Z71.3 Dietary counseling and surveillance Casey Palomino, DO, MPH 01/23/2020 Z71.89 Other specified counseling Casey Palomino, DO, MPH Plan of Treatment 02/06/2020 - Casey Palomino DO, MPHAllComments:Continue current medical pain management; injection therapy, osteopathic manipulation, PT / modalities, and consults as needed to manage chronic pain.Non - opioid pain management discussed and optionsdiscussed.Side effects discussed; anticipatory guidance given. Patient clearly understand and agree with all medical treatments and suggestions. 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 Importance of regular nutrition throughout the day discussed.Activity as toleratedContinue with PCP Functional Status Description No Information Available Mental Status Description No Information Available Referrals Description No Information Available
--- OUTSIDE RECORDS SUMMARY | 2020-02-10 14:24 | XMS REPORT | Continuity of Care Document ---
:1970 External Reference #:[id number] Author Name Casey Palomino DO MPH Address [address] [place] [address], [address] [place] [id number] Care Team Providers Name Role Phone Paradise Alcazar NP - Nurse Practitioner Care Team Information Nurse Assistant Monique Chapman MD Care Team Information Nurse Assistant [phone] Problems Active Problems Provider Date Fibromyalgia Casey Palomino DO, MPH Onset: 01/23/2020 Tobacco user Casey Palomino DO, MPH Onset: 01/23/2020 Vitamin deficiency Casey Palomino DO, MPH Onset: 01/23/2020 Degenerative joint disease involving multiple Casey Palomino DO, MPH Onset: joints Social History Type Date Description Comments Sex Unknown ETOH Use Occasionally consumes alcohol Tobacco Use Start: Unknown Patient is a current smoker, smokes every day Recreational Drug Use Denies Drug Use Smoking Status Reviewed: 01/23/20 Patient is a current smoker, smokes every day Allergies, Adverse Reactions, Alerts Active Allergies Reaction Severity Comments Date Morphine 03/22/2019 Codeine 03/22/2019 Demerol 03/22/2019 Levaquin 03/22/2019 Meperidine 03/22/2019 Medications Active Medications SIG Qnty Indications Ordering Provider Date Gabapentin take 1 capsules 15caps Casey Palomino DO, 01/23/2020 100mg by mouth every MPH Capsules night Tylenol Extra si by mouth Unknown Strength twice a day as 500mg Tablets directed Immunizations Description No Information Available Vital Signs Date Vital Result Comment 01/23/2020 2:06pm BP Systolic 130 mmHg BP Diastolic 78 mmHg Heart Rate 74 /min Respiratory Rate 20 /min Height 61 inches 5'1" Weight 138.00 lb Pain Level 8 Pain at this time. Pain Level Without Medicine 10 Without meds BMI (Body Mass Index) 26.1 kg/m2 03/22/2019 1:55pm BP Systolic 128 mmHg BP Diastolic 80 mmHg Heart Rate 82 /min Respiratory Rate 20 /min Height 61 inches 5'1" Weight 132.00 lb Pain Level 6 Pain at this time. Pain Level Without Medicine 10 09/06 without meds BMI (Body Mass Index) 24.9 kg/m2 Results Description No Information Available Procedures Description No Information Available Medical Devices Description No Information Available Encounters Description No Information Available Assessments Date Code Description Provider 01/23/2020 G89.29 Other chronic pain Palomino, Casey, DO, MPH 01/23/2020 M54.5 Low back pain Palomino, Casey, DO, MPH 01/23/2020 M54.2 Cervicalgia Palomino, Casey, DO, MPH 01/23/2020 M54.6 Pain in thoracic spine Palomino, Casey, DO, MPH 01/23/2020 M15.0 Primary generalized (osteo)arthritis Palomino, Casey, DO, MPH 01/23/2020 M79.7 Fibromyalgia Palomino, Casey, DO, MPH 01/23/2020 M99.01 Segmental and somatic dysfunction of Palomino, Casey, DO, MPH cervical region 01/23/2020 M35.9 Systemic involvement of connective tissue, Palomino, Casey, DO , MPH unspecified 01/23/2020 M99.03 Segmental and somatic dysfunction of lumbar Palomino, Casey, DO, MPH region 01/23/2020 Z13.31 Encounter for screening for depression Palomino, Casey, DO, MPH 01/23/2020 M99.07 Segmental and somatic dysfunction of upper Palomino, Casey, DO, MPH extremity 01/23/2020 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 Palomino, Casey , DO, MPH 01/23/2020 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, unspecified Palomino, Casey, DO, MPH 01/23/2020 E56.8 Deficiency of other vitamins Palomino, Casey, DO, MPH 01/23/2020 Z87.19 Personal history of other diseases of the Palomino, Casey, DO , MPH digestive system 01/23/2020 F17.210 Nicotine dependence, cigarettes, Casey Palomino DO MPH uncomplicated 01/23/2020 M25.511 Pain in right shoulder Casey Palomino DO, MPH 01/23/2020 M25.512 Pain in left shoulder Casey Palomino DO, MPH 01/23/2020 M99.02 Segmental and somatic dysfunction of Casey Palomino DO, MPH thoracic region 01/23/2020 Z71.3 Dietary counseling and surveillance Casey Palomino DO, MPH 01/23/2020 Z71.89 Other specified counseling Casey Palomino DO MPH Plan of Treatment Future Appointment(s):02/06/2020 4:00 pm - Casey Palomino DO, MPH at Main Office as Of 12/29/1401 - Casey Palomino DO, MPHG89.29 Other chronic painComments:Chronic Intractable Pain. Symptoms and complaints discussed and reviewed today. Begin trial of adequate and appropriate Opioid Pain Management as well as non-opioid treatment options - New Medications listed below.M54.5 Low back painComments:Chronic Intractable Pain. Symptoms and complaints discussed and reviewed today. Begin trial of adequate and appropriate Opioid Pain Management as well as non-opioid treatment options - New Medications listed mvbfnB09.2 CervicalgiaComments:Chronic Intractable Pain. Symptoms and complaints discussed and reviewed today. Begin trial of adequate and appropriate Opioid Pain Management as well as non-opioid treatment plan - New Medications listed below.M54.6 Pain in thoracic spineComments:Chronic Intractable Pain. Symptoms and complaints discussed and reviewed today. Begin trial of adequate and appropriate Opioid pain Management - New Medications listed below.M15.0 Primary generalized (osteo)arthritisComments:Chronic Intractable Pain. Symptoms and complaints discussed and reviewed today. 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 Medications Listed are for Pain Management. Side effects discussed anticipatory guidance given. Patient agrees with all medical treatment and suggestions. Activity as toleratedContinue with NrdtzlogmqhhsiL12.01 Segmental and somatic dysfunction of cervical regionComments:Chronic. Symptoms and complaints discussed and reviewed today. Somatic dysfunctions noted warrantingOMT. Continue current medical pain management and OMT. Y0SJpHg. OMT performed.M35.9 Systemic involvement of connective tissue, unspecifiedComments:Side effects discussed; anticipatory guidance given. Patient clearly understands and agrees with allmedical treatments and suggestions. All medicines prescribed are adequate and appropriate for this patient's complaint of pain, medical history, physical , and personal goals.Goals of Treatment are to provide adequate and appropriate multidisciplinary medical pain management to increase/ maintain patient's quality of life and functionality while maintaining satisfactory side effect profile and minimizing sales donor recruitment representative end-organ damage. Will continue to follow with JchaprheyzcpC28.03 Segmental and somatic dysfunction of lumbar regionComments:Chronic. Symptoms and complaints discussed and reviewed today. Lumbar somatic dysfunctions noted warranting OMT. Continue current medical pain management and OMT. U9HCzHk. OMT performed after evaluation. LA.Z13.31 Encounter for screening for depressionComments:Followed by PCP. Reassurance and counseling given. Will follow in terms of pain management.M99.07 Segmental and somatic dysfunction of upper extremityComments:Chronic. Symptoms and complaints discussed and reviewed today. Somatic dysfunctions noted warrantingOMT to the shoulder. Continue current medical pain management and OMT. Myofascial restrictions. OMTperformed. R.Z79.891 [facility] (current) use of opiate analgesicNew Labs:Urine Drug Screen, Ordered: 01/23/20Comments:Urine drug screen sample taken. Rapid Point of Care Cup was reviewed in office with patient. Will send out UDT Rapid to Quantitative lab for confirmation testing. Urine Drug Testing (UDT) was done today to monitor opiate use and to monitor possible use of illicit substances. I will discuss the results at the next appointment from the [facility] lab.The following tests were ordered:6 AM, AMPH, RODY, BHUMI, BUP, CARIS, COCM, ETG, FENT, MCSHSG, OPI, OXY, PCP, TAPEN, XTSY, ZOLP. A urine drug test (UDT) was ordered for this patient and collected on site today. Creatinine has been ordered as well for specimen validity, not for kidney function. Preliminary UDT results are not final and should not be used to determine patient care or plan of treatment. Initially a qualitative immunoassay screen will be done. Any inconsistent or positive findings will be further tested with a more comprehensive quantitative confirmation LCMS study. It is part of the treatment process of prescribing controlled substances and is considered standard of care.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, vxjksmevyvzM08.8 Deficiency of other jgaymyvlO23.19 Personal history of other diseases of the digestive tffipoZ31.210 Nicotine dependence, cigarettes , uncomplicatedComments:Patient encouraged to continue to try to stop smoking, considering their co-morbidities and to follow up with their PCP. Informed that smoking affects healing, the metabolism of medications in a negative way and interferes with pain receptors. Pain is directly and negatively effected by smoking.M25.511 Pain in right shoulderComments:Chronic. Symptoms and complaints discussed and reviewed today. No significant changes in physical findings. Continue current medical pain management.M25.512 Pain in left shoulderComments:Chronic. Symptoms and complaints discussed and reviewed today. No significant changes in physical findings. Continue current medical pain management.M99.02 Segmental and somatic dysfunction of thoracic regionComments: Chronic. Symptoms and complaints discussed and reviewed today. Notable somatic dysfunctions noted warranting OMT. Continue current medical pain management and OMT. T6-8NRlSr. OMT performed after evaluation. HVLA.Z71.3 Dietary counseling and surveillanceComments:Regular, small, nutritious meals higher in protein encouraged spaced evenly throughout the day. Count calories. Keep a food log. Hydrate.Z71.89 Other specified counselingComments:Fall prevention reviewed as were Meds and their effects. UDT was reviewed with patient. These tests are often confounded with foods, supplements, other substances in the environment and other medicines. I reserve final determination on clinical judgement and experience with the patient to determine if there is, in fact, a true medical problem.In this case, at this time, I think there is not a problem with the patient but normal limitations of the test or with the scheduling of the patient. Patient counseled to not use substances for pain relief other than those prescribed, to follow directions and to take medications only as they are prescribed.Reviewed Medication Agreement and requirements for patient to continue receiving opioid therapy. Patient clearly understands and agrees. It is clearlyunderstood that violation of the above is grounds for possible discharge. I will perform confirmatory labs and monitor closely.Patient was placed on two weeks of pain medication and is to return for UDT. UDT was reviewed with patient. These tests are often confounded with foods , supplements, other substances in the environment and other medicines. I reserve final determination on clinical judgement and experience with the patient to determine if there is, in fact, a true medical problem.In this case, at this time, I think there is not a problem with the patient but normal limitations of the test or with the scheduling of the patient. Patient counseled to not use substances for pain relief other than those prescribed, to follow directions and to take medications only as they are prescribed.Reviewed Medication Agreement and requirements for patient to continue receiving opioid therapy. Patient clearly understands and agrees. It is clearly understood that violation of the above is grounds for possible discharge. I will perform confirmatory labs and monitor closely. Followed by Primary Care Physician and/ or psychiatrist. Will follow as pertains to patient's pain. Followed by Primary CarePhysician and/or psychiatrist. Will follow as pertains to patient's pain.AllNew Medication:Gabapentin 100 mg - take 1 capsules by mouth every nightComments:Continue current medical pain management; injection therapy, osteopathic [...] while maintaining satisfactory side effect profile andminimizing sales donor recruitment representative end-organ damage. Importance of regular nutrition throughout the day discussed.Activity as toleratedContinue with PCP Functional Status Description No Information Available Mental Status Description No Information Available Referrals Description No Information Available
--- OUTSIDE RECORDS SUMMARY | 2020-02-10 14:24 | XMS REPORT | Continuity of Care Document ---
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 Symptoms and complaints discussed [...] maintaining satisfactory side effect profile and minimizing assisted end-organ damage. Medications Listed are for Pain Management. Side effects discussed anticipatory guidance given. Patient agrees with all medical treatment and suggestions. Activity as toleratedContinue with BrevzrijzuptupW05.01 Segmental and somatic dysfunction of cervical regionComments:Chronic. Symptoms and complaints discussed and reviewed today. Somatic dysfunctions noted warrantingOMT. Continue current medical pain management and OMT. G3XOdJm. OMT performed.M35.9 Systemic involvement of connective tissue, [...] maintaining satisfactory side effect profile and minimizing assisted end-organ damage. Will continue to follow with CtnqbcpqgkwtA08.03 Segmental and somatic dysfunction of lumbar regionComments:Chronic. Symptoms and complaints discussed and reviewed today. Lumbar somatic dysfunctions noted warranting OMT. Continue current medical pain management and OMT. A0WEuGi. OMT performed after evaluation. LA.Z13.31 Encounter for screening for depressionComments:Followed by PCP. Reassurance and counseling given. Will follow in terms of pain management.M99.07 Segmental and somatic dysfunction of upper extremityComments:Chronic. Symptoms and complaints discussed and reviewed today. Somatic dysfunctions noted warrantingOMT to the shoulder. Continue current medical pain management and OMT. Myofascial restrictions. OMTperformed. R.Z79.891 rn long term care (current) use of opiate analgesicNew Labs:Urine Drug [...] considered standard of care.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, unspecifiedComments:Continue current medical pain management.E56.8 Deficiency of other vitaminsComments:Continue current medical pain management. Will monitor as need with PCP as well.Z87.19 Personal history of other diseases of the digestive systemComments:Continue current medical pain management. Follow current care with PCP, will monitor in terms of pain management.F17.210 Nicotine dependence, cigarettes, uncomplicatedComments:Patient encouraged to continue to try to [...] management.M99.02 Segmental and somatic dysfunction of thoracic regionComments:Chronic. Symptoms and complaints discussed and reviewed today. Notable somatic dysfunctions noted warranting OMT. Continue current medical pain management and OMT. T6-8NRlSr. OMT performed after evaluation. HVLA.Z71.3 Dietary counseling and surveillanceComments:Regular, small, nutritious meals higher in protein encouraged spaced evenly throughout the day. Count calories. Keep a food log. Hydrate.Z71.89 Other specified counselingComments:Patient again counseled in regards to office practice. They were educated about our answering services. What to do if they should have to visit the ER or have any adverse reactions to medications we prescribe. Patient understands that they have to fill their prescription at one pharmacy. If there is achange they must call us and let us know what new pharmacy they will be using. They understand and agree that they must present within 24 hours of a phone call for a random urine screen and a pill count. Patient understands that if the medication needs a prior authorization that it can take up to 72hours to complete. Patient introduced to non - opioid pain management options.AllNew Medication:Gabapentin 100 mg - take 1 capsules by mouth every nightComments:The injections that we are requesting on the behalf of the patient areTendon Sheath Injection () quantity of 4, Tendon Origin Insertion () quantity of 2,Trigger Point Injection () quantity of 2, Bilateral Suprascapular Nerve Block ([id number]) quantity of 2. If she is able to have injections as a secondary option for pain relief, that may be another option other than increases in opioid medications. Please feel free to contact the office with any questions.All above symptoms and complaints discussed as well as diagnoses reviewed.Continue trial of opioid pain management - note changes below; injection therapy, osteopathic manipulation ( OMT), PT / modalities, and consults as needed to manage chronic pain.Side effects discussed; anticipatory guidance given. Patient clearly understands and agrees with all medical treatments and suggestions. 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 Activity as toleratedContinue with PCP Functional Status Description No Information Available Mental Status Description No Information Available Referrals Description No Information Available
--- OUTSIDE RECORDS SUMMARY | 2020-02-10 14:24 | XMS REPORT | Continuity of Care Document ---
:1970 External Reference #:[id number] Author Name Kem Betts MD (transmitted by agent of provider Marcella Juarez) Address [address] [place] [address] Care Team Providers Name Role Phone Kobe Perkins MD - Vascular Care Team Information Machine Inspector Surgery Alpesh Salgado MD - Family Medicine Care Team Information Machine Inspector [phone] Nell Perez F.N.P - Family Care Team Information Machine Inspector Problems Active Problems Provider Date Neck pain Alpesh Max M.D. Onset: 02/23/2017 Social History Type Date Description Comments Sex Unknown ETOH Use Rarely consumes alcohol Tobacco Use Start: Unknown Patient is a current smoker, smokes every day Recreational Drug Use Denies Drug Use Tobacco Use Start: Unknown Heavy tobacco smoker (more than 10 cigarettes/day) Smoking Status Reviewed: 12/18/19 Heavy tobacco smoker (more than 10 cigarettes/day) Allergies, Adverse Reactions, Alerts Active Allergies Reaction Severity Comments Date Morphine 02/23/2017 Codeine 02/23/2017 Demerol 02/23/2017 Medications Active Medications SIG Qnty Indications Ordering Date Provider Cyclobenzaprine HCL one by mouth Unknown 10mg three times a day Tablets as needed spasm Acetaminophen Extra TK 2 TS PO Q 6 H Unknown Strength While Symptoms 500mg Tablets Last . MDD 6 Tablets Immunizations Description No Information Available Vital Signs Date Vital Result Comment 12/18/2019 10:06am Height 59.5 inches 4'11.50" Weight 133.00 lb Heart Rate 97 /min BP Systolic 103 mmHg BP Diastolic 63 mmHg Body Temperature 99.1 F Pain Level 7 O2 % BldC Oximetry 96 % BMI (Body Mass Index) 26.4 kg/m2 06/15/2017 1:39pm Height 59.5 inches 4'11.50" Weight 130.00 lb Heart Rate 87 /min BP Systolic Sitting 126 mmHg BP Diastolic Sitting 78 mmHg Respiratory Rate 15 /min BMI (Body Mass Index) 25.8 kg/m2 Results Description No Information Available Procedures Description No Information Available Medical Devices Description No Information Available Encounters Description No Information Available Assessments Date Code Description Provider 12/18/2019 M79.7 Fibromyalgia Kem Betts MD 12/18/2019 M54.2 Cervicalgia Kem Betts MD 12/18/2019 R76.0 Raised antibody titer Kem Betts MD 12/18/2019 R53.83 Other fatigue Kem Betts MD 12/18/2019 I73.00 Raynaud's syndrome without gangrene Kem Betts MD Plan of Treatment Future Appointment(s):02/11/2020 4:00 pm - [facility]12/18/2019 - Kem Betts, MDM79.7 FibromyalgiaComments :Can consider taking the prescribed cymbalta from PCP, follow-up with them in regards to uptitratingFollow up:8 kredmM41.2 XvqqlfrbywtX68.0 Raised antibody vruftT76.83 Other fatigueReferral:[facility], Sleep Disord,Diag/ DfamqyV72.00 Raynaud's syndrome without gangrene Functional Status Description No Information Available Mental Status Description No Information Available Referrals Refer to Reason for Referral Status Appt Date [facility] Patient with hypermobility and fatigue; eval and Created treat for underlying ALEXANDR concern [address] [place] [id number] [phone]
[2020-02-10 14:33] VITALS: BP 113/74
--- NOTE | 2020-02-10 14:48 | UC ---
Throat Pain/Nasal Ralph HPI - HPI Summary HPI Summary: C/O ear pain and throat pain, more on the right side with enlarged lymph nodes in the neck again right > left. Some nasal congestion. 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 Also c/o urinary frequency in the past week. H/O UTI without knowing with neuropathy - History of Current Complaint Chief Complaint: UCGeneralIllness Stated Complaint: EAR PAIN Time Seen by Provider: 02/10/20 14:36 Hx Last Menstrual Period: 09/04/19 Pain Intensity: 6 - Allergies/Home Medications Allergies/Adverse Reactions: Allergies Allergy/AdvReac Type Severity Reaction Status Date / Time codeine Allergy Severe Swelling Verified 02/10/20 14:33 Of Face,Lips,& Throat meperidine [From Demerol] Allergy Unknown Verified 02/10/20 14:33 Reaction Details morphine Allergy Unknown Verified 02/10/20 14:33 Reaction Details Home Medications: Home Medications Acetaminophen [Tylenol Arthritis] 1,300 mg PO Q8H PRN 03/04/19 [History Confirmed 02/10/20] Cyclobenzaprine TAB* [Flexeril 10 MG TAB*] 10 mg PO TID PRN 03/04/19 [History Confirmed 02/10/20] predniSONE 20 mg TAB [Deltasone 20 MG TAB*] 60 mg PO DAILY #18 tab 02/10/20 [Rx] PMH/Surg Hx/FS Hx/Imm Hx - Additional Past Medical History Additional PMH: Lupus. Neuropathy. Chronic pain. - Surgical History Surgical History: Yes Surgery Procedure, Year, and Place: D&c, gallbladder , nose surgery d/t fx. - Family History Known Family History: Positive: Cardiac Disease, Other - LUPUS 3 relatives Negative: Hypertension - Social History Occupation: Disabled Lives: With Family Alcohol Use: None Substance Use Type: None Smoking Status (MU): Heavy Every Day Tobacco Smoker Type: Cigarettes Amount Used/How Often: 1 1/2 PPD Length of Time of Smoking/Using Tobacco: Since Age 17 Have You Smoked in the Last Year: Yes Household Exposure Type: Cigarettes Review of Systems All Other Systems Reviewed And Are Negative: Yes ENT: Positive: Sore Throat, Ear Ache, Nasal Discharge Genitourinary: Positive: Frequency Neurological/Mental Status: Positive: Headache - chronic, off/ on. Physical Exam Triage Information Reviewed: Yes Appearance: Well-Nourished, Pain Distress Vital Signs: Initial Vital Signs Temp 99.3 F 02/10/20 14:26 Pulse 84 02/10/20 14:26 Resp 18 02/10/20 14:26 BP 113/74 02/10/20 14:26 Pulse Ox 98 02/10/20 14:26 Vital Signs Reviewed: Yes Eyes: Positive: Conjunctiva Clear ENT: Positive: Pharynx normal, Nasal congestion, TMs normal Neck: Positive: Tenderness @ - anterior cervical nodes., Enlarged Nodes @ - Bilateral tender anterior cervical, right > left Respiratory: Positive: Wheezing - expiratory wheeze with coughing. Cardiovascular: Positive: RRR, Murmur:Sys:Grade _?_/ - 2/6 RUSB Musculoskeletal Exam: Normal Neurological Exam: Normal Psychological Exam: Normal Skin Exam: Normal Throat Pain/Nasal Course/Dx - Differential Dx/Diagnosis Differential Diagnosis/HQI/PQRI: Otitis Media, Pharyngitis, Sinusitis, Tonsillitis, URI Provider Diagnosis: Acute pharyngitis, Eustachian tube dysfunction, Acute bronchospasm due to viral infection, Cigarette nicotine dependence Discharge ED - Sign-Out/Discharge Documenting (check all that apply): Patient Departure All imaging exams completed and their final reports reviewed: No Studies - Discharge Plan Condition: Stable Disposition: HOME Prescriptions: predniSONE 20 mg TAB [Deltasone 20 MG TAB*] 60 mg PO DAILY #18 tab Patient Education Materials: Pharyngitis (ED), Bronchospasm (ED) Referrals: Monique Chapman MD [Primary Care Provider] - Additional Instructions: NEILMED SINUS RINSE: CHECK OUT AT [email or web address] Saline nasal wash helps with mucous, allergies and congestion. It can be used up to twice a day or only as needed. Use lukewarm tap water. It does not have to be sterilized or distilled water. Tilt your head straight down into the sink. Do 1/3 on each side and snort out of both nostrils. Repeat the process with 1/6 of the bottle on each side with snorting in between to finish the solution in the bottle Smoking Cessation Tricks. 1. Cut down by 1 cigarette per day every 2-3 days. Write the number of smokes for that day on the calendar. 2. Identify triggers to smoking: after meals, on the phone, in the car, with coffee, on breaks at work, etc. 3. Formulate a plan with a behavior to replace the smoking. Fireballs in the car , doodle pad on the phone, flavored creamer for the coffee, go for a walk after a meal or on break at work. 4. For stress smokes do deep breathing relaxation. Breath deep in through the nose hold the breath in for a few seconds then breath out slowly through the mouth. EUSTATION TUBE DYSFUNCTION: The tube that allows the middle ear to equalize the pressure with the outside air is blocked. This can be due to colds, allergies, smoke, or other irritants. Short term treatment can include Afrin, sudafed and nasal cortisone sprays for allergies. - Billing Disposition and Condition Condition: STABLE Disposition: Home
== END 2020-02-10 15:06 | disposition home or self-care (01) ==
LOC: UCCORT 12:24
DX: J02.9 Acute pharyngitis, unspecified (principal); H69.90 Unspecified Eustachian tube disorder, unspecified ear; F17.210 Nicotine dependence, cigarettes, uncomplicated; J20.8 Acute bronchitis due to other specified organisms; Z88.5 Allergy status to narcotic agent
CPT/HCPCS: 81003; 87651; 99212; G0463